=== PATIENT | female | born 1965 | race Caucasian/White ===

== ENCOUNTER 2020-03-03 15:48 | Outpatient (REF) | payer OTHER, SELFPAY ==
[2020-03-03 16:38] LABS: Hemoglobin 11.4 g/dl (12.0-16.0); Mean Corpuscular HGB Conc 31.7 g/dl (31.0-35.0); Mean Corpuscular Hemoglobin 28.3 pg (27.0-33.0); Mean Corpuscular Volume 89.3 fL (80-98); Mean Platelet Volume 8.5 fL (9.4-12.3); Platelet Count 718 X10*3/uL (160-400); Red Blood Count 4.03 X10*6/uL (4.20-5.50); Red Cell Distribution Width 12.6 % (11.0-16.0); White Blood Count 10.5 X10*3/uL (4.8-10.8)
[2020-03-03 17:07] LABS: Alanine Aminotransferase 31 U/L (0-31); Albumin Level 3.9 g/dL (3.5-5.0); Alkaline Phosphatase 95 U/L (39-117); Anion Gap 17 (12-20); Aspartate Amino Transferase 20 U/L (5-31); Bilirubin Direct 0.2 mg/dL (0.0-0.5); Bilirubin Total 0.4 mg/dL (0.0-1.0); Blood Urea Nitrogen 13 mg/dL (9-16); C Reactive Protein 11.34 mg/dL (< or = 0.50); Carbon Dioxide 28 mmol/L (22-29); Chloride 97 mmol/L (96-108); Cholesterol 180 mg/dL; Estimated Glomerular Filt Rate > 60; Glucose Random 85 mg/dL (60-115); HDL Cholesterol 36 mg/dL; LDL Cholesterol Calculated 126 mg/dl; Potassium 4.6 mmol/l (3.3-5.1); Sodium 137 mmol/L (135-145); Triglycerides 91 mg/dL
[2020-03-03 17:16] LABS: Erythrocyte Sedimentation Rate 85 MM/HR (0-20)
[2020-03-03 17:27] LABS: Thyroid Stimulating Hormone 1.84 uIU/mL (0.32-4.0)
[2020-03-04 12:22] LABS: Rheumatoid Factor < 15.0 IU/mL (<15.0)
[2020-03-04 21:36] LABS: Lyme Abs Screen <0.90 index
== END 2020-03-03 15:49 | disposition home or self-care (01) ==
LOC: HO.LAB 15:48
PROVIDERS: PCP Internal Medicine; Visit Provider Internal Medicine
DX: M19.90 Unspecified osteoarthritis, unspecified site (principal)
CPT/HCPCS: 36415; 80048; 80061; 80076; 84443; 85027; 85652; 86140; 86431; 86618

== ENCOUNTER 2020-03-23 15:54 | Outpatient (REF) | payer OTHER, SELFPAY ==
--- NOTE | 2020-03-23 16:15 | XR_ITS ---
EXAMINATION: XR CHEST CLINICAL INFORMATION: M19.90 - Unspecified osteoarthritis, unspecified site COMPARISON: Chest radiographs 04/07/2006 TECHNIQUE: 2 views of the chest were obtained. FINDINGS: There is subtle smooth pleural reaction left lateral base with blunting of the left lateral and posterior costophrenic sulci and fine subpleural linear scar versus disc atelectasis. Finding is new from remote chest 04/07/2006. Remainder of the lungs are clear. There is no lobar or segmental airspace consolidation or groundglass opacity. The heart is normal in size. The vascularity is normal. No acute bony abnormality. XR/XR chest 2V IMPRESSION: Smooth pleural reaction left lateral base with fine linear subpleural scarring versus disc atelectasis. Findings new from remote chest 2005. Remainder of lungs clear.
[2020-03-23 17:36] LABS: C Reactive Protein 4.12 mg/dL (< or = 0.50)
[2020-03-27 20:28] LABS: Vitamin D 25-OH, D2 <4 ng/mL; Vitamin D 25-OH, D3 27 ng/mL; Vitamin D 25-OH, Total 27 ng/mL (30-100)
== END 2020-03-23 15:55 | disposition home or self-care (01) ==
LOC: HO.LAB 15:54
PROVIDERS: PCP Internal Medicine; Visit Provider Internal Medicine
DX: M19.90 Unspecified osteoarthritis, unspecified site (principal)
CPT/HCPCS: 36415; 71046; 82306; 86038; 86039; 86140

== ENCOUNTER 2020-03-26 12:17 | Outpatient (REF) | payer OTHER, SELFPAY ==
--- NOTE | 2020-03-26 13:16 | XR_ITS ---
EXAMINATION: CR X-RAY HAND BILATERAL 3 VIEW CLINICAL INFORMATION: Unspecified osteoarthritis. COMPARISON: None TECHNIQUE: 3 views each of the bilateral hands were obtained. FINDINGS: There is no acute fracture or dislocation. The joint spaces are unremarkable. The carpal bones are normally aligned. The distal radius and ulna are intact. The soft tissues are unremarkable. XR/XR hand RT min 3V IMPRESSION: No acute abnormality or significant degenerative changes.
--- NOTE | 2020-03-26 13:16 | XR_ITS ---
EXAMINATION: CR X-RAY HAND BILATERAL 3 VIEW CLINICAL INFORMATION: Unspecified osteoarthritis. COMPARISON: None TECHNIQUE: 3 views each of the bilateral hands were obtained. FINDINGS: There is no acute fracture or dislocation. The joint spaces are unremarkable. The carpal bones are normally aligned. The distal radius and ulna are intact. The soft tissues are unremarkable. XR/XR hand LT min 3V IMPRESSION: No acute abnormality or significant degenerative changes.
== END 2020-03-26 12:18 | disposition home or self-care (01) ==
LOC: HO.LAB 12:17
PROVIDERS: PCP Internal Medicine; Visit Provider Student in an Organized Health Care Education/Training Program
DX: M19.042 Primary osteoarthritis, left hand (principal); M19.041 Primary osteoarthritis, right hand
CPT/HCPCS: 73130

== ENCOUNTER 2020-03-29 16:39 | Outpatient (REF) | payer OTHER, SELFPAY | END 2020-03-29 16:40 | disposition home or self-care (01) | LOC: HO.LAB 16:39 | PROVIDERS: PCP Internal Medicine; Visit Provider Student in an Organized Health Care Education/Training Program | DX: Z13.89 Encounter for screening for other disorder (principal) ==

== ENCOUNTER 2020-03-31 12:21 | Outpatient (REF) | payer OTHER, SELFPAY ==
[2020-03-31 12:58] LABS: MANUAL DIFF FLAG NO
[2020-03-31 13:02] LABS: Basophils Absolute Auto 0.1 X10*3/uL (0.0-0.2); Basophils Percent Auto 0.5 % (0-2); Eosinophils Absolute Auto 0.1 X10*3/uL (0.0-0.4); Eosinophils Percent Auto 0.8 % (0-4); Hematocrit 39.7 % (37-47); Hemoglobin 12.6 g/dl (12.0-16.0); Imm Gran Abs Auto 0.04 X10*3/uL (0.00-0.03); Imm Gran Pct Auto 0.4 % (0.0-0.4); Lymphocytes Absolute Auto 1.2 X10*3/uL (1.2-4.9); Lymphocytes Percent Auto 13.3 % (20-40); Mean Corpuscular HGB Conc 31.7 g/dl (31.0-35.0); Mean Corpuscular Hemoglobin 27.6 pg (27.0-33.0); Mean Corpuscular Volume 86.9 fL (80-98); Mean Platelet Volume 8.4 fL (9.4-12.3); Monocytes Absolute Auto 0.6 X10*3/uL (0.1-1.2); Monocytes Percent Auto 6.6 % (2-11); Neutrophils Absolute Auto 7.2 X10*3/uL (2.0-8.3); Neutrophils Percent Auto 78.4 % (45-73); Platelet Count 506 X10*3/uL (160-400); Red Blood Count 4.57 X10*6/uL (4.20-5.50); Red Cell Distribution Width 14.7 % (11.0-16.0); White Blood Count 9.1 X10*3/uL (4.8-10.8)
[2020-03-31 13:09] LABS: Glucose Urine UA NEG (NEG); Leukocyte Esterase Urine 1+ (NEG); Nitrite Urine NEG (NEG); PH 8.5 (5.0-8.0); Specific Gravity - Urine 1.015 (1.005-1.025); Urine Blood 1+ (NEG); Urine Ketones NEG (NEG); Urine Protein NEG (NEG-TRACE)
[2020-03-31 13:12] LABS: Appearance Urine HAZY; Color Urine YELLOW
[2020-03-31 13:25] LABS: Alanine Aminotransferase 7 U/L (0-31); Albumin Level 4.2 g/dL (3.5-5.0); Alkaline Phosphatase 73 U/L (39-117); Anion Gap 10 (12-20); Aspartate Amino Transferase 10 U/L (5-31); Bilirubin Total 0.7 mg/dL (0.0-1.0); Blood Urea Nitrogen 11 mg/dL (9-16); C Reactive Protein 0.69 mg/dL (< or = 0.50); Calcium 9.3 mg/dL (8.4-10.2); Carbon Dioxide 32 mmol/L (22-29); Chloride 98 mmol/L (96-108); Estimated Glomerular Filt Rate > 60; Glucose Random 92 mg/dL (60-115); Potassium 3.6 mmol/l (3.3-5.1); Sodium 136 mmol/L (135-145)
[2020-03-31 13:54] LABS: Erythrocyte Sedimentation Rate 23 MM/HR (0-20)
[2020-03-31 14:32] LABS: Bacteria Urine 1+ /LPF; Squamous Epithelial Cell Urine 2+ /LPF
[2020-04-01 12:53] LABS: Anti DNA DS Antibody 1 IU/mL; Antibody to SS-A Antigen <1.0 NEG AI (<1.0 NEG); Antibody to SS-B Antigen <1.0 NEG AI (<1.0 NEG); SM/Ribonucleoprotein Ab <1.0 NEG AI (<1.0 NEG); Smith Protein <1.0 NEG AI (<1.0 NEG)
[2020-04-01 13:17] LABS: Complement C3 127 mg/dL (83-193)
[2020-04-01 13:43] LABS: IgA 370 mg/dL (47-310); IgG 1860 mg/dL (600-1640); IgM 147 mg/dL (50-300)
[2020-04-01 14:53] LABS: Prot Elec - Alpha1 0.4 g/dL (0.2-0.3); Prot Elec - Alpha2 0.9 g/dL (0.5-0.9); Prot Elec - Beta 1 0.5 g/dL (0.4-0.6); Prot Elec - Beta 2 0.5 g/dL (0.2-0.5); Prot Elec - Gamma 1.7 g/dL (0.8-1.7); Prot Elec - Total Protein 7.8 g/dL (6.1-8.1)
[2020-04-03 14:12] LABS: TS Negative Control Passed; TS Panel A 0; TS Panel B 0; TS Positive Control Passed; TSpotTB Negative (SeeBelow)
[2020-04-05 04:04] LABS: HBS Num1 0.47 mIU/mL (0-7.99); HBc Num1 0.12 S/CO (0.00-0.79); Hepatitis B Core Antibody Nonreactive (Nonreactive); ~HepC Num1 0.16 S/CO (0.00-0.79); ~Hepatitis B Surface Antibody NONREACTIVE (Nonreactive); ~Hepatitis C Antibody Nonreactive (Nonreactive)
[2020-04-05 04:11] LABS: Hepatitis B Surface Antigen Negative (Negative)
[2020-04-05 13:33] LABS: Cyclic Citrullinated Peptide <16 UNITS
[2020-04-07 08:10] LABS: HBsAGNum1 0.21 S/CO (0.00-0.99)
[2020-04-07 09:25] LABS: Hepatitis A Antibody IgM 0.15 Index (0-0.79); ~Hepatitis A Antibody IgM Nonreactive (Nonreactive)
== END 2020-03-31 12:22 | disposition home or self-care (01) ==
LOC: HO.LAB 12:21
PROVIDERS: PCP Internal Medicine; Visit Provider Student in an Organized Health Care Education/Training Program
DX: M19.90 Unspecified osteoarthritis, unspecified site (principal); R76.8 Other specified abnormal immunological findings in serum
CPT/HCPCS: 36415; 80053; 81001; 82784; 84155; 84165; 85025; 85652; 86140; 86160; 86200; 86225; 86235; 86334; 86481; 86704; 86706; 86709; 86803; 87340

== ENCOUNTER → 2020-04-14 15:32 | Outpatient (BNVA) | payer OTHER, SELFPAY | PROVIDERS: PCP Internal Medicine; Visit Provider Student in an Organized Health Care Education/Training Program | DX: Z76.89 Persons encountering health services in other specified circumstances (principal) ==

== ENCOUNTER 2020-04-29 17:47 | Outpatient (REF) | payer OTHER, SELFPAY ==
--- NOTE | 2020-04-29 17:50 | MR_ITS ---
EXAMINATION: MR HAND WITH AND WITHOUT CONTRAST, LEFT CLINICAL INFORMATION: Unspecified osteoarthritis. COMPARISON: Radiograph dated 03/26/2020 TECHNIQUE: Multiplanar MR imaging was obtained through the left hand by a 1.5 Yaritza magnet before and after intravenous administration of 7 mL Gadavist. FINDINGS: The bone marrow signal is normal. No fracture or malalignment. The articular cartilage appears well preserved. No abnormal marrow or capsular enhancement. The joints appear well preserved without effusions, synovitis, capsular thickening, or pericapsular inflammatory changes. No periostitis. Ligaments and TFCC appear intact at the left wrist. The tendons are intact without tears or tendinosis. There is a small volume of tenosynovial fluid around the flexor digitorum tendons to the index and long fingers at the level of the carpal tunnel. There is associated tenosynovial hyperenhancement in this region, as well. A trace amount of fluid around the extensor carpi radialis brevis and longus tendons at the insertion is within normal limits. Subcutaneous soft tissues are normal in signal intensity. No suspicious nodules or abnormal enhancement. MR/MR hand LT wo/w con IMPRESSION: Mild tenosynovitis in the carpal tunnel around the index and long finger flexor tendons. Otherwise, normal MRI of the left hand without synovitis or other findings of arthritis.
== END 2020-04-29 17:48 | disposition home or self-care (01) ==
LOC: HO.MRI 17:47
PROVIDERS: Visit Provider Student in an Organized Health Care Education/Training Program
DX: M19.90 Unspecified osteoarthritis, unspecified site (principal)
CPT/HCPCS: 73220; A9585

== ENCOUNTER → 2020-05-20 16:08 | Outpatient (BNVA) | payer OTHER, SELFPAY | PROVIDERS: PCP Internal Medicine; Visit Provider Student in an Organized Health Care Education/Training Program ==

== ENCOUNTER 2020-05-29 09:56 | Outpatient (REF) | payer OTHER, SELFPAY ==
--- NOTE | ~2020-05-29 | MM_ITS ---
EXAMINATION: MM SCREENING DIGITAL BREAST TOMOSYNTHESIS, BILATERAL CLINICAL INFORMATION: Screening. Asymptomatic. Benign left breast biopsy 2016. The lifetime risk of breast cancer based on the Tyrer-Cuzick Model is 14%. COMPARISON: Mammography: 05/24/2019, 05/18/2018, 04/11/2017 TECHNIQUE: Digital breast tomosynthesis is performed in both the craniocaudal and mediolateral oblique views along with computer-aided detection (CAD). Synthesized 2D images are generated from the tomosynthesis. Additional exaggerated left CC view is provided. FINDINGS: The breasts are heterogeneously dense, which may obscure small masses (ACR BI-RADS breast composition Category c). There is inhomogeneous parenchymal pattern similar to prior studies. No developing density or interval mass or architectural abnormality or abnormal calcifications. There is biopsy clip marker overlying oval mass again seen central posterior upper outer left breast. No significant changes. MM/MM tomosynthesis screening BI IMPRESSION: No significant changes from prior exams. ASSESSMENT: BI-RADS 2: Benign RECOMMENDATION: Routine annual mammography screening. This patient's information was entered into a reminder system with a target due date for their next mammogram.
== END 2020-05-29 09:57 | disposition home or self-care (01) ==
LOC: HO.MAMMO 09:56
PROVIDERS: PCP Internal Medicine; Visit Provider Internal Medicine
DX: Z12.31 Encounter for screening mammogram for malignant neoplasm of breast (principal)
CPT/HCPCS: 77063; 77067

== ENCOUNTER → 2020-08-18 15:36 | Outpatient (BNVA) | payer OTHER, SELFPAY | PROVIDERS: Visit Provider Student in an Organized Health Care Education/Training Program ==

== ENCOUNTER 2020-09-13 13:15 | Outpatient (REF) | payer OTHER, SELFPAY ==
[2020-09-13 13:46] LABS: MANUAL DIFF FLAG NO
[2020-09-13 14:00] LABS: Basophils Percent Auto 0.3 % (0-2); Eosinophils Percent Auto 0.3 % (0-4); Hematocrit 35.9 % (37-47); Hemoglobin 12.2 g/dl (12.0-16.0); Imm Gran Abs Auto 0.04 X10*3/uL (0.00-0.03); Imm Gran Pct Auto 0.4 % (0.0-0.4); Lymphocytes Absolute Auto 1.9 X10*3/uL (1.2-4.9); Mean Corpuscular Hemoglobin 30.9 pg (27.0-33.0); Mean Corpuscular Volume 90.9 fL (80-98); Mean Platelet Volume 9.1 fL (9.4-12.3); Monocytes Absolute Auto 0.7 X10*3/uL (0.1-1.2); Monocytes Percent Auto 7.4 % (2-11); Neutrophils Absolute Auto 7.1 X10*3/uL (2.0-8.3); Neutrophils Percent Auto 72.6 % (45-73); Platelet Count 333 X10*3/uL (160-400); Red Blood Count 3.95 X10*6/uL (4.20-5.50); Red Cell Distribution Width 13.2 % (11.0-16.0); White Blood Count 9.7 X10*3/uL (4.8-10.8)
[2020-09-13 14:41] LABS: Erythrocyte Sedimentation Rate 10 MM/HR (0-20)
[2020-09-13 15:00] LABS: Alanine Aminotransferase < 6 U/L (0-31); Albumin Level 3.9 g/dL (3.5-5.0); Alkaline Phosphatase 57 U/L (39-117); Anion Gap 12 (12-20); Aspartate Amino Transferase 12 U/L (5-31); Bilirubin Total 0.9 mg/dL (0.0-1.0); Blood Urea Nitrogen 8 mg/dL (9-16); C Reactive Protein 0.78 mg/dL (< or = 0.50); Carbon Dioxide 26 mmol/L (22-29); Chloride 102 mmol/L (96-108); Estimated Glomerular Filt Rate > 60; Glucose Random 79 mg/dL (60-115); Potassium 3.7 mmol/L (3.3-5.1); Sodium 136 mmol/L (135-145); Total Protein 6.5 g/dL (6.5-8.0)
== END 2020-09-13 13:16 | disposition home or self-care (01) ==
LOC: HO.LAB 13:15
PROVIDERS: PCP Internal Medicine; Visit Provider Student in an Organized Health Care Education/Training Program
DX: M19.90 Unspecified osteoarthritis, unspecified site (principal)
CPT/HCPCS: 36415; 80053; 85025; 85652; 86140

== ENCOUNTER → 2020-10-13 09:36 | Outpatient (BNVA) | payer OTHER, SELFPAY | PROVIDERS: Visit Provider Student in an Organized Health Care Education/Training Program ==

== ENCOUNTER 2020-12-14 16:13 | Outpatient (REF) | payer OTHER, SELFPAY ==
[2020-12-14 16:51] LABS: MANUAL DIFF FLAG NO
[2020-12-14 16:55] LABS: Basophils Percent Auto 0.4 % (0-2); Eosinophils Absolute Auto 0.1 X10*3/uL (0.0-0.4); Eosinophils Percent Auto 0.7 % (0-4); Hematocrit 39.9 % (37-47); Hemoglobin 13.8 g/dl (12.0-16.0); Imm Gran Abs Auto 0.03 X10*3/uL (0.00-0.03); Imm Gran Pct Auto 0.4 % (0.0-0.4); Lymphocytes Absolute Auto 1.6 X10*3/uL (1.2-4.9); Lymphocytes Percent Auto 19.4 % (20-40); Mean Corpuscular HGB Conc 34.6 g/dl (31.0-35.0); Mean Corpuscular Hemoglobin 32.4 pg (27.0-33.0); Mean Corpuscular Volume 93.7 fL (80-98); Mean Platelet Volume 9.1 fL (9.4-12.3); Monocytes Absolute Auto 0.8 X10*3/uL (0.1-1.2); Monocytes Percent Auto 9.2 % (2-11); Neutrophils Absolute Auto 5.8 X10*3/uL (2.0-8.3); Neutrophils Percent Auto 69.9 % (45-73); Platelet Count 400 X10*3/uL (160-400); Red Blood Count 4.26 X10*6/uL (4.20-5.50); Red Cell Distribution Width 12.8 % (11.0-16.0); White Blood Count 8.2 X10*3/uL (4.8-10.8)
[2020-12-14 17:21] LABS: Alanine Aminotransferase 8 U/L (0-31); Albumin Level 4.3 g/dL (3.5-5.0); Alkaline Phosphatase 58 U/L (39-117); Anion Gap 10 (12-20); Aspartate Amino Transferase 11 U/L (5-31); Bilirubin Total 0.9 mg/dL (0.0-1.0); Blood Urea Nitrogen 8 mg/dL (9-16); C Reactive Protein 0.23 mg/dL (< or = 0.50); Calcium 9.3 mg/dL (8.4-10.2); Carbon Dioxide 29 mmol/L (22-29); Chloride 101 mmol/L (96-108); Estimated Glomerular Filt Rate > 60; Glucose Random 83 mg/dL (60-115); Potassium 3.8 mmol/L (3.3-5.1); Sodium 136 mmol/L (135-145); Total Protein 7.1 g/dL (6.5-8.0)
[2020-12-14 17:54] LABS: Erythrocyte Sedimentation Rate 6 MM/HR (0-20)
== END 2020-12-14 16:14 | disposition home or self-care (01) ==
LOC: HO.LAB 16:13
PROVIDERS: PCP Internal Medicine; Visit Provider Student in an Organized Health Care Education/Training Program
DX: L40.50 Arthropathic psoriasis, unspecified (principal)
CPT/HCPCS: 36415; 80053; 85025; 85652; 86140

== ENCOUNTER 2021-06-02 10:32 | Outpatient (REF) | payer OTHER, SELFPAY ==
[2021-06-02 11:07] LABS: Hematocrit 40.1 % (37.0-47.0); Hemoglobin 13.5 g/dl (12.0-16.0); Mean Corpuscular HGB Conc 33.7 g/dl (31.0-35.0); Mean Corpuscular Hemoglobin 31.4 pg (27.0-33.0); Mean Corpuscular Volume 93.3 fL (80.0-98.0); Mean Platelet Volume 8.7 fL (9.4-12.3); Platelet Count 537 X10*3/uL (160-400); Red Cell Distribution Width 12.2 % (11.0-16.0); White Blood Count 5.3 X10*3/uL (4.8-10.8)
[2021-06-02 11:39] LABS: Alanine Aminotransferase 6 U/L (0-31); Alkaline Phosphatase 71 U/L (39-117); Anion Gap 12 (12-20); Aspartate Amino Transferase 12 U/L (5-31); Bilirubin Direct 0.2 mg/dL (0.0-0.5); Bilirubin Total 0.6 mg/dL (0.0-1.0); Blood Urea Nitrogen 12 mg/dL (9-16); C Reactive Protein 1.58 mg/dL (< or = 0.50); Calcium 9.2 mg/dL (8.4-10.2); Carbon Dioxide 28 mmol/L (22-29); Chloride 97 mmol/L (96-108); Cholesterol 160 mg/dL; Estimated Glomerular Filt Rate > 60; Glucose Random 79 mg/dL (60-115); HDL Cholesterol 44 mg/dL; LDL Cholesterol Calculated 102 mg/dl; Potassium 4.3 mmol/L (3.3-5.1); Sodium 133 mmol/L (135-145); Total Protein 7.2 g/dL (6.5-8.0); Triglycerides 70 mg/dL
[2021-06-02 11:48] LABS: Thyroid Stimulating Hormone 1.64 uIU/mL (0.32-4.0)
[2021-06-02 12:25] LABS: Vitamin B12 303 pg/mL (200-900)
[2021-06-06 13:37] LABS: Vitamin D 25-OH, D2 <4 ng/mL; Vitamin D 25-OH, D3 21 ng/mL; Vitamin D 25-OH, Total 21 ng/mL (30-100)
== END 2021-06-02 10:33 | disposition home or self-care (01) ==
LOC: HO.10HDL 10:32
PROVIDERS: Visit Provider Internal Medicine
DX: L40.50 Arthropathic psoriasis, unspecified (principal)
CPT/HCPCS: 36415; 80048; 80061; 80076; 82306; 82550; 82607; 82746; 84443; 85027; 86140

== ENCOUNTER 2021-06-08 15:53 | Outpatient (REF) | payer OTHER, SELFPAY ==
--- NOTE | ~2021-06-08 | MM_ITS ---
EXAMINATION: MM SCREENING DIGITAL BREAST TOMOSYNTHESIS, BILATERAL CLINICAL INFORMATION: Screening. Asymptomatic. The lifetime risk of breast cancer based on the Tyrer-Cuzick Model is 9%. COMPARISON: Mammography: 05/29/2020, 05/24/2019, 01/15/2019, 04/11/2017 TECHNIQUE: Digital breast tomosynthesis is performed in both the craniocaudal and mediolateral oblique views along with computer-aided detection (CAD). Synthesized 2D images are generated from the tomosynthesis. FINDINGS: The breasts are heterogeneously dense, which may obscure small masses (ACR BI-RADS breast composition Category c). Parenchymal pattern is similar to prior studies. There is no developing density or interval mass or architectural abnormality. Left breast again has biopsy clip marker overlying a stable mass upper outer quadrant. There are no abnormal calcifications. The axilla and skin contours are unremarkable. No significant changes. MM/MM tomosynthesis screening BI IMPRESSION: No mammographic evidence of malignancy. ASSESSMENT: BI-RADS 2: Benign RECOMMENDATION: Routine annual mammography screening. This patient's information was entered into a reminder system with a target due date for their next mammogram.
== END 2021-06-08 15:54 | disposition home or self-care (01) ==
LOC: HO.MAMMO 15:53
PROVIDERS: PCP Internal Medicine; Visit Provider Internal Medicine
DX: Z12.31 Encounter for screening mammogram for malignant neoplasm of breast (principal)
CPT/HCPCS: 77063; 77067

== ENCOUNTER → 2021-08-09 07:52 | Outpatient (BNVA) | payer OTHER, SELFPAY | PROVIDERS: PCP Internal Medicine; Visit Provider Internal Medicine Rheumatology | DX: Z13.89 Encounter for screening for other disorder (principal) ==

== ENCOUNTER 2021-08-10 16:02 | Outpatient (REF) | payer OTHER, SELFPAY ==
--- NOTE | ~2021-08-10 | XR_ITS ---
EXAMINATION: XR HIP, RIGHT CLINICAL INFORMATION: Arthropathic psoriasis. COMPARISON: None TECHNIQUE: Two views of the right hip. FINDINGS: There is no evidence of acute fracture or dislocation of the right hip. There is some narrowing with sclerosis involving the superior joint space. There appears to be a subchondral cyst formation about the femoral head without femoral head collapse with some mild articular irregularity. Marginal spurring is present. Right sacroiliac joint appears unremarkable. IUD seen in place. XR/XR hip RT min 2V IMPRESSION: No acute fracture or dislocation of the right hip. Degenerative changes of the right hip as described. Diminished density about the femoral head likely represents subchondral cyst, however, possibility of early avascular necrosis not excluded. No evidence of femoral head collapse or crescent-shaped region of diminished density.
[2021-08-10 16:12] LABS: MANUAL DIFF FLAG NO
[2021-08-10 16:50] LABS: Basophils Percent Auto 0.5 % (0-2); Eosinophils Absolute Auto 0.1 X10*3/uL (0.0-0.4); Eosinophils Percent Auto 1.1 % (0-4); Hematocrit 39.4 % (37.0-47.0); Hemoglobin 13.4 g/dl (12.0-16.0); Imm Gran Abs Auto 0.02 X10*3/uL (0.00-0.03); Imm Gran Pct Auto 0.3 % (0.0-0.4); Lymphocytes Absolute Auto 1.9 X10*3/uL (1.2-4.9); Lymphocytes Percent Auto 25.7 % (20-40); Monocytes Absolute Auto 0.8 X10*3/uL (0.1-1.2); Neutrophils Absolute Auto 4.7 x10*3/uL (2.0-8.3); Neutrophils Percent Auto 62.4 % (45-73); Platelet Count 383 X10*3/uL (160-400); Red Blood Count 4.19 X10*6/uL (4.20-5.50); Red Cell Distribution Width 13.4 % (11.0-16.0); White Blood Count 7.5 X10*3/uL (4.8-10.8)
[2021-08-10 17:23] LABS: Erythrocyte Sedimentation Rate 7 MM/HR (0-20)
[2021-08-10 17:25] LABS: Alanine Aminotransferase 7 U/L (0-31); Aspartate Amino Transferase 11 U/L (5-31); C Reactive Protein 0.33 mg/dL (< or = 0.50); Estimated Glomerular Filt Rate > 60
== END 2021-08-10 16:03 | disposition home or self-care (01) ==
LOC: HO.LAB 16:02
PROVIDERS: PCP Internal Medicine; Visit Provider Internal Medicine Rheumatology
DX: L40.50 Arthropathic psoriasis, unspecified (principal); Z79.899 Other long term (current) drug therapy
CPT/HCPCS: 36415; 73502; 82565; 84450; 84460; 85025; 85652; 86140

== ENCOUNTER 2021-10-13 10:27 | Outpatient (REF) | payer OTHER, SELFPAY ==
[2021-10-13 10:56] LABS: MANUAL DIFF FLAG NO
[2021-10-13 11:26] LABS: Basophils Percent Auto 0.6 % (0-2); Eosinophils Absolute Auto 0.1 X10*3/uL (0.0-0.4); Hematocrit 40.7 % (37.0-47.0); Imm Gran Abs Auto 0.02 X10*3/uL (0.00-0.03); Imm Gran Pct Auto 0.3 % (0.0-0.4); Lymphocytes Absolute Auto 1.7 X10*3/uL (1.2-4.9); Lymphocytes Percent Auto 23.9 % (20-40); Mean Corpuscular HGB Conc 34.4 g/dl (31.0-35.0); Mean Corpuscular Hemoglobin 32.5 pg (27.0-33.0); Mean Corpuscular Volume 94.4 fL (80.0-98.0); Mean Platelet Volume 9.2 fL (9.4-12.3); Monocytes Absolute Auto 0.6 X10*3/uL (0.1-1.2); Monocytes Percent Auto 8.4 % (2-11); Neutrophils Absolute Auto 4.7 x10*3/uL (2.0-8.3); Neutrophils Percent Auto 65.8 % (45-73); Platelet Count 328 X10*3/uL (160-400); Red Blood Count 4.31 X10*6/uL (4.20-5.50); Red Cell Distribution Width 12.6 % (11.0-16.0); White Blood Count 7.2 X10*3/uL (4.8-10.8)
[2021-10-13 12:18] LABS: Alanine Aminotransferase 7 U/L (0-31); Aspartate Amino Transferase 11 U/L (5-31); C Reactive Protein 0.34 mg/dL (< or = 0.50); Estimated Glomerular Filt Rate > 60
[2021-10-13 12:28] LABS: Erythrocyte Sedimentation Rate 7 MM/HR (0-20)
[2021-10-18 13:20] LABS: Vitamin D 25-OH, D2 <4 ng/mL; Vitamin D 25-OH, D3 53 ng/mL; Vitamin D 25-OH, Total 53 ng/mL (30-100)
== END 2021-10-13 10:28 | disposition home or self-care (01) ==
LOC: HO.LAB 10:27
PROVIDERS: PCP Internal Medicine; Visit Provider Internal Medicine Rheumatology
DX: L40.50 Arthropathic psoriasis, unspecified (principal); E55.9 Vitamin D deficiency, unspecified; Z79.899 Other long term (current) drug therapy
CPT/HCPCS: 36415; 82306; 82565; 84450; 84460; 85025; 85652; 86140

== ENCOUNTER 2021-12-29 16:02 | Outpatient (REF) | payer OTHER, SELFPAY ==
[2021-12-29 16:17] LABS: MANUAL DIFF FLAG NO
[2021-12-29 16:28] LABS: Basophils Percent Auto 0.5 % (0-2); Eosinophils Absolute Auto 0.1 X10*3/uL (0.0-0.4); Eosinophils Percent Auto 0.9 % (0-4); Imm Gran Abs Auto 0.02 X10*3/uL (0.00-0.03); Imm Gran Pct Auto 0.3 % (0.0-0.4); Lymphocytes Percent Auto 25.9 % (20-40); Mean Corpuscular Hemoglobin 32.9 pg (27.0-33.0); Mean Corpuscular Volume 93.9 fL (80.0-98.0); Mean Platelet Volume 8.8 fL (9.4-12.3); Monocytes Absolute Auto 0.7 X10*3/uL (0.1-1.2); Monocytes Percent Auto 8.7 % (2-11); Neutrophils Absolute Auto 4.9 x10*3/uL (2.0-8.3); Neutrophils Percent Auto 63.7 % (45-73); Platelet Count 386 X10*3/uL (160-400); Red Blood Count 4.26 X10*6/uL (4.20-5.50); Red Cell Distribution Width 12.5 % (11.0-16.0); White Blood Count 7.7 X10*3/uL (4.8-10.8)
[2021-12-29 16:46] LABS: Alanine Aminotransferase 12 U/L (0-31); Aspartate Amino Transferase 15 U/L (5-31); C Reactive Protein 0.16 mg/dL (< or = 0.50); Estimated Glomerular Filt Rate > 60
[2021-12-29 17:22] LABS: Erythrocyte Sedimentation Rate 5 MM/HR (0-20)
== END 2021-12-29 16:03 | disposition home or self-care (01) ==
LOC: HO.LAB 16:02
PROVIDERS: PCP Internal Medicine; Visit Provider Internal Medicine Rheumatology
DX: L40.50 Arthropathic psoriasis, unspecified (principal); Z79.899 Other long term (current) drug therapy
CPT/HCPCS: 36415; 82565; 84450; 84460; 85025; 85652; 86140

== ENCOUNTER 2022-03-06 15:59 | Outpatient (REF) | payer OTHER, SELFPAY ==
[2022-03-06 16:11] LABS: MANUAL DIFF FLAG NO
[2022-03-06 16:33] LABS: Basophils Percent Auto 0.4 % (0-2); Eosinophils Absolute Auto 0.1 X10*3/uL (0.0-0.4); Eosinophils Percent Auto 0.8 % (0-4); Hematocrit 42.7 % (37.0-47.0); Hemoglobin 14.8 g/dl (12.0-16.0); Imm Gran Abs Auto 0.01 X10*3/uL (0.00-0.03); Imm Gran Pct Auto 0.1 % (0.0-0.4); Lymphocytes Absolute Auto 1.8 X10*3/uL (1.2-4.9); Lymphocytes Percent Auto 25.1 % (20-40); Mean Corpuscular HGB Conc 34.7 g/dl (31.0-35.0); Mean Corpuscular Hemoglobin 32.7 pg (27.0-33.0); Mean Corpuscular Volume 94.3 fL (80.0-98.0); Monocytes Absolute Auto 0.5 X10*3/uL (0.1-1.2); Monocytes Percent Auto 7.3 % (2-11); Neutrophils Absolute Auto 4.8 x10*3/uL (2.0-8.3); Neutrophils Percent Auto 66.3 % (45-73); Platelet Count 390 X10*3/uL (160-400); Red Blood Count 4.53 X10*6/uL (4.20-5.50); Red Cell Distribution Width 12.5 % (11.0-16.0); White Blood Count 7.3 X10*3/uL (4.8-10.8)
[2022-03-06 17:03] LABS: Alanine Aminotransferase < 6 U/L (0-31); Aspartate Amino Transferase 12 U/L (5-31); C Reactive Protein 0.31 mg/dL (< or = 0.50); Estimated Glomerular Filt Rate > 60
[2022-03-06 17:29] LABS: Erythrocyte Sedimentation Rate 11 MM/HR (0-20)
== END 2022-03-06 16:00 | disposition home or self-care (01) ==
LOC: HO.LAB 15:59
PROVIDERS: PCP Internal Medicine; Visit Provider Internal Medicine Rheumatology
DX: L40.50 Arthropathic psoriasis, unspecified (principal); Z79.899 Other long term (current) drug therapy
CPT/HCPCS: 36415; 82565; 84450; 84460; 85025; 85652; 86140

== ENCOUNTER 2022-05-02 15:58 | Outpatient (REF) | payer OTHER, SELFPAY ==
[2022-05-02 16:19] LABS: MANUAL DIFF FLAG NO
[2022-05-02 17:02] LABS: Basophils Percent Auto 0.5 % (0-2); Eosinophils Absolute Auto 0.1 X10*3/uL (0.0-0.4); Eosinophils Percent Auto 1.3 % (0-4); Hematocrit 40.1 % (37.0-47.0); Imm Gran Abs Auto 0.02 X10*3/uL (0.00-0.03); Imm Gran Pct Auto 0.3 % (0.0-0.4); Lymphocytes Absolute Auto 1.9 X10*3/uL (1.2-4.9); Lymphocytes Percent Auto 24.1 % (20-40); Mean Corpuscular HGB Conc 34.9 g/dl (31.0-35.0); Mean Corpuscular Hemoglobin 32.4 pg (27.0-33.0); Mean Corpuscular Volume 92.8 fL (80.0-98.0); Mean Platelet Volume 10.1 fL (9.4-12.3); Monocytes Absolute Auto 0.7 X10*3/uL (0.1-1.2); Monocytes Percent Auto 8.8 % (2-11); Neutrophils Absolute Auto 5.1 x10*3/uL (2.0-8.3); Platelet Count 327 X10*3/uL (160-400); Red Blood Count 4.32 X10*6/uL (4.20-5.50); White Blood Count 7.8 X10*3/uL (4.8-10.8)
[2022-05-02 17:23] LABS: Alanine Aminotransferase 6 U/L (0-31); Aspartate Amino Transferase 13 U/L (5-31); C Reactive Protein 0.42 mg/dL (< or = 0.50); Estimated Glomerular Filt Rate > 60
[2022-05-02 17:47] LABS: Erythrocyte Sedimentation Rate 9 MM/HR (0-20)
== END 2022-05-02 15:59 | disposition home or self-care (01) ==
LOC: HO.LAB 15:58
PROVIDERS: PCP Internal Medicine; Visit Provider Internal Medicine Rheumatology
DX: L40.50 Arthropathic psoriasis, unspecified (principal); Z79.899 Other long term (current) drug therapy
CPT/HCPCS: 36415; 82565; 84450; 84460; 85025; 85652; 86140

== ENCOUNTER 2022-06-14 15:48 | Outpatient (REF) | payer OTHER, SELFPAY ==
--- NOTE | ~2022-06-14 | MM_ITS ---
EXAMINATION: MM SCREENING DIGITAL BREAST TOMOSYNTHESIS, BILATERAL CLINICAL INFORMATION: Screening. Asymptomatic. The lifetime risk of breast cancer based on the Tyrer-Cuzick Model is 9.6%. COMPARISON: Mammography: June 08, 2021 and studies dating back to March 15, 2016 TECHNIQUE: Digital breast tomosynthesis is performed in both the craniocaudal and mediolateral oblique views along with computer-aided detection (CAD). Synthesized 2D images are generated from the tomosynthesis. FINDINGS: The breasts are heterogeneously dense, which may obscure small masses (ACR BI-RADS breast composition Category c). There are no new significant masses, abnormal calcifications, or other abnormalities. Stable piercing biopsied left breast lesion again seen. MM/MM tomosynthesis screening BI IMPRESSION: No significant changes from prior exam. ASSESSMENT: BI-RADS 2: Benign RECOMMENDATION: Routine annual mammography screening. This patient's information was entered into a reminder system with a target due date for their next mammogram.
== END 2022-06-14 15:49 | disposition home or self-care (01) ==
LOC: HO.MAMMO 15:48
PROVIDERS: PCP Internal Medicine; Visit Provider Internal Medicine
DX: Z12.31 Encounter for screening mammogram for malignant neoplasm of breast (principal)
CPT/HCPCS: 77063; 77067

== ENCOUNTER 2022-06-22 07:25 | Outpatient (REF) | payer OTHER, SELFPAY ==
[2022-06-22 07:40] LABS: MANUAL DIFF FLAG NO
[2022-06-22 08:08] LABS: Basophils Percent Auto 0.5 % (0-2); Eosinophils Absolute Auto 0.1 X10*3/uL (0.0-0.4); Eosinophils Percent Auto 1.4 % (0-4); Hematocrit 41.6 % (37.0-47.0); Hemoglobin 14.1 g/dl (12.0-16.0); Imm Gran Abs Auto 0.02 X10*3/uL (0.00-0.03); Imm Gran Pct Auto 0.3 % (0.0-0.4); Lymphocytes Absolute Auto 1.4 X10*3/uL (1.2-4.9); Lymphocytes Percent Auto 20.5 % (20-40); Mean Corpuscular HGB Conc 33.9 g/dl (31.0-35.0); Mean Corpuscular Hemoglobin 31.5 pg (27.0-33.0); Mean Corpuscular Volume 92.9 fL (80.0-98.0); Mean Platelet Volume 8.7 fL (9.4-12.3); Monocytes Absolute Auto 0.7 X10*3/uL (0.1-1.2); Monocytes Percent Auto 10.2 % (2-11); Neutrophils Absolute Auto 4.5 x10*3/uL (2.0-8.3); Neutrophils Percent Auto 67.1 % (45-73); Platelet Count 419 X10*3/uL (160-400); Red Blood Count 4.48 X10*6/uL (4.20-5.50); Red Cell Distribution Width 13.1 % (11.0-16.0); White Blood Count 6.7 X10*3/uL (4.8-10.8)
[2022-06-22 08:35] LABS: Alanine Aminotransferase 12 U/L (0-31); Aspartate Amino Transferase 12 U/L (5-31); C Reactive Protein 0.35 mg/dL (< or = 0.50); Estimated Glomerular Filt Rate > 60
[2022-06-22 09:05] LABS: Erythrocyte Sedimentation Rate 8 MM/HR (0-20)
== END 2022-06-22 07:26 | disposition home or self-care (01) ==
LOC: HO.LAB 07:25
PROVIDERS: PCP Internal Medicine; Visit Provider Internal Medicine Rheumatology
DX: L40.50 Arthropathic psoriasis, unspecified (principal); Z79.899 Other long term (current) drug therapy
CPT/HCPCS: 36415; 82565; 84450; 84460; 85025; 85652; 86140

== ENCOUNTER → 2022-06-26 13:43 | Outpatient (BNVA) | payer OTHER, SELFPAY | PROVIDERS: PCP Internal Medicine; Visit Provider Internal Medicine Rheumatology | DX: Z13.89 Encounter for screening for other disorder (principal) ==

== ENCOUNTER 2022-09-11 15:40 | Outpatient (REF) | payer OTHER, SELFPAY ==
[2022-09-11 17:22] LABS: Erythrocyte Sedimentation Rate 12 MM/HR (0-20)
[2022-09-11 17:38] LABS: Alanine Aminotransferase 9 U/L (0-31); Aspartate Amino Transferase 12 U/L (5-31); C Reactive Protein 0.35 mg/dL (< or = 0.50); Estimated Glomerular Filt Rate > 60
== END 2022-09-11 15:41 | disposition home or self-care (01) ==
LOC: HO.LAB 15:40
PROVIDERS: Visit Provider Internal Medicine Rheumatology
DX: L40.50 Arthropathic psoriasis, unspecified (principal); Z79.899 Other long term (current) drug therapy
CPT/HCPCS: 36415; 82565; 84450; 84460; 85652; 86140

== ENCOUNTER → 2022-10-09 08:04 | Outpatient (BNVA) | payer OTHER, SELFPAY | PROVIDERS: PCP Internal Medicine; Visit Provider Internal Medicine Rheumatology ==

== ENCOUNTER 2022-11-14 13:11 | Outpatient (REF) | payer OTHER, SELFPAY ==
[2022-11-14 13:22] LABS: MANUAL DIFF FLAG NO
[2022-11-14 14:10] LABS: Basophils Percent Auto 0.1 % (0-2); Eosinophils Absolute Auto 0.1 X10*3/uL (0.0-0.4); Eosinophils Percent Auto 1.6 % (0-4); Hematocrit 41.1 % (37.0-47.0); Hemoglobin 14.1 g/dl (12.0-16.0); Imm Gran Abs Auto 0.03 X10*3/uL (0.00-0.03); Imm Gran Pct Auto 0.4 % (0.0-0.4); Lymphocytes Absolute Auto 1.7 X10*3/uL (1.2-4.9); Lymphocytes Percent Auto 22.3 % (20-40); Mean Corpuscular HGB Conc 34.3 g/dl (31.0-35.0); Mean Corpuscular Volume 90.3 fL (80.0-98.0); Mean Platelet Volume 8.7 fL (9.4-12.3); Monocytes Absolute Auto 0.6 X10*3/uL (0.1-1.2); Monocytes Percent Auto 7.7 % (2-11); Neutrophils Absolute Auto 5.1 x10*3/uL (2.0-8.3); Neutrophils Percent Auto 67.9 % (45-73); Platelet Count 389 X10*3/uL (160-400); Red Blood Count 4.55 X10*6/uL (4.20-5.50); Red Cell Distribution Width 12.8 % (11.0-16.0); White Blood Count 7.5 X10*3/uL (4.8-10.8)
[2022-11-14 14:48] LABS: Erythrocyte Sedimentation Rate 12 MM/HR (0-20)
[2022-11-14 14:57] LABS: Alanine Aminotransferase 11 U/L (0-31); Aspartate Amino Transferase 13 U/L (5-31); Estimated Glomerular Filt Rate > 60
== END 2022-11-14 13:12 | disposition home or self-care (01) ==
LOC: HO.LAB 13:11
PROVIDERS: PCP Internal Medicine; Visit Provider Internal Medicine Rheumatology
DX: L40.50 Arthropathic psoriasis, unspecified (principal); Z79.899 Other long term (current) drug therapy
CPT/HCPCS: 36415; 82565; 84450; 84460; 85025; 85652; 86140

== ENCOUNTER 2022-12-28 07:56 | Outpatient (AMB) | payer OTHER, SELFPAY ==
--- NOTE | 2022-12-28 07:58 | MHC.PC.OV ---
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 Accompanied by: Self / Same As Patient Allergies No Known Allergies Allergy (Verified 12/28/22 08:17) Medication List - Last Reconciled 12/28/22 by Freddy Dinh MD alprazolam 0.5 mg PO BEDTIME PRN fluorouracil 5% appl topical BID PRN folic acid 1 mg PO DAILY ibuprofen 600 mg PO Q8H PRN methotrexate sodium 15 mg (6 x 2.5 mg) PO QWEEK triamterene-hydrochlorothiazid 37.5-25 mg 1 tab PO QAM Tobacco use date assessed: 06/22/22 Dental Screening Dental Screen Date: 12/28/22 Did you have a dental visit in the last 12 months?: Yes Did you have a dental problem in the last 6 months where you did not have access to dental care?: No Was dental information given to patient?: Patient has dentist HPI 6mth f/u HPI Details 57-year-old female presents to the office to discuss her chronic medical conditions. Since last office visit patient had a right hip replacement in July. She underwent the procedure successfully and has recovered completely. Continues to have breakthrough pain due to her psoriatic arthritis. The methotrexate dosage has been increased to 2.5 mg 6 times a day. Also the 5 FU cream has been restarted. Able to function and do all activities of daily living. Compliant with medications and reporting no side effects. [facility] Medical History Psoriasis Vitamin D deficiency Long-term use of immunosuppressant medication History of squamous cell carcinoma of skin Vitamin deficiency FUNMI positive Essential (primary) hypertension Anxiety disorder, unspecified Surgical History History of total right hip replacement Family History Son No problems noted. Son No problems noted. Father Substance use disorder Social History Housing: House Alcohol intake: current Alcohol intake frequency: a few times a week Patient Tobacco Use Status: Never used Tobacco e-Cigarette/Vaping Use: Never Used Second Hand Smoke Exposure: No service: No Current occupational status: employed Current occupational exposures/hazards: No Cognitive needs: No Hearing needs: No Vision needs: Yes (contact/Reading glasses) Questionnaire Thrive Questionnaire Date Thrive assessed: 06/22/22 CHIP-7 AMB Questionnaire CHIP-7 Date CHIP - 7 assessed: 06/22/22 Source: Developed by Drs. Osmany Sung, Carie Araiza, Kan Quijano and colleagues, with an educational jessica from [employer]. Physical exam (Primary Care) Tobacco/Smoking Status: Tobacco use Status Tobacco use date assessed 06/22/22 12/28/22 07:58 Patient Tobacco Use Status Never used Tobacco 12/28/22 07:58 e-Cigarette/Vaping Use Never Used 12/28/22 07:58 Thrive Assessment: Date of Thrive Assessment Date Thrive assessed 06/22/22 12/28/22 07:58 Const General: cooperative and healthy appearing Nutritional Appearance: well nourished Orientation/consciousness: patient oriented x3 Limitations: no limitations HENMT Head: Yes normal to inspection Eyes General: appearance normal, both eyes and all related structures Neck Neck: Yes normal visual inspection Chest Chest palpation & inspection: normal palpation of entire chest wall Resp Effort & Inspection: normal respiratory effort Neuro General: patient oriented x3 Assessment and Plan Assessment & Plan (1) Essential (primary) hypertension: Code(s): I10 - Essential (primary) hypertension Plan: Blood pressure is in range. Continue current medications. (2) Psoriatic arthritis: Comment: Onset 2019. methotrexate started 06/2020 Code(s): L40.50 - Arthropathic psoriasis, unspecified Plan: Continue medications at same dosage. Patient has an upcoming Rheumatology appointment. (3) Anxiety disorder, unspecified: Code(s): F41.9 - Anxiety disorder, unspecified Qualifiers: Anxiety disorder type: generalized anxiety disorder Qualified Code(s): F41.1 - Generalized anxiety disorder Plan: Continue current medications Coding Level of Care Code Est Pt Level 4 (50872) Diagnoses Essential (primary) hypertension I10 Psoriatic arthritis L40.50 Generalized anxiety disorder F41.1 Anxiety disorder type: generalized anxiety disorder
[2022-12-28 08:03] VITALS: BP 132/90; PULSE 77; O2SAT 99; BMI 27.8
== END 2022-12-28 08:19 | disposition home or self-care (01) ==
PROVIDERS: Visit Provider Internal Medicine
DX: I10 Essential (primary) hypertension (principal); L40.50 Arthropathic psoriasis, unspecified; F41.1 Generalized anxiety disorder
CPT/HCPCS: 99214

== ENCOUNTER 2023-01-19 07:51 | Outpatient (REF) | payer OTHER, SELFPAY ==
[2023-01-19 11:45] LABS: MANUAL DIFF FLAG NO
[2023-01-19 11:56] LABS: Basophils Percent Auto 0.5 % (0-2); Eosinophils Absolute Auto 0.1 X10*3/uL (0.0-0.4); Eosinophils Percent Auto 2.2 % (0-4); Hematocrit 41.3 % (37.0-47.0); Hemoglobin 13.8 g/dl (12.0-16.0); Imm Gran Abs Auto 0.02 X10*3/uL (0.00-0.03); Imm Gran Pct Auto 0.3 % (0.0-0.4); Lymphocytes Absolute Auto 1.6 X10*3/uL (1.2-4.9); Lymphocytes Percent Auto 25.1 % (20-40); Mean Corpuscular HGB Conc 33.4 g/dl (31.0-35.0); Mean Corpuscular Hemoglobin 31.6 pg (27.0-33.0); Mean Corpuscular Volume 94.5 fL (80.0-98.0); Mean Platelet Volume 9.2 fL (9.4-12.3); Monocytes Absolute Auto 0.7 X10*3/uL (0.1-1.2); Neutrophils Absolute Auto 3.8 x10*3/uL (2.0-8.3); Neutrophils Percent Auto 60.9 % (45-73); Platelet Count 439 X10*3/uL (160-400); Red Blood Count 4.37 X10*6/uL (4.20-5.50); Red Cell Distribution Width 13.2 % (11.0-16.0); White Blood Count 6.3 X10*3/uL (4.8-10.8)
[2023-01-19 12:17] LABS: Alanine Aminotransferase 10 U/L (0-31); Aspartate Amino Transferase 14 U/L (5-31); C Reactive Protein 0.47 mg/dL (< or = 0.50); Estimated Glomerular Filt Rate > 60
[2023-01-19 12:42] LABS: Erythrocyte Sedimentation Rate 10 MM/HR (0-20)
== END 2023-01-19 07:52 | disposition home or self-care (01) ==
LOC: HO.10HDL 07:51
PROVIDERS: PCP Internal Medicine; Visit Provider Internal Medicine Rheumatology
DX: L40.50 Arthropathic psoriasis, unspecified (principal); Z79.899 Other long term (current) drug therapy
CPT/HCPCS: 36415; 82565; 84450; 84460; 85025; 85652; 86140

== ENCOUNTER 2023-01-24 07:55 | Outpatient (AMB) | payer OTHER, SELFPAY ==
--- NOTE | 2023-01-24 07:56 | MHC.OFFVIS ---
Intake Vital Signs 01/24/23 07:58 Height 5 ft 6 in Weight 170 lb 6.677 oz BMI 27.5 BP 142/90 H Blood Pressure Location Lt brachial Position Sitting Pulse 80 Pulse Source Pulse Oximeter Temp 97 F Temp Source Skin Pulse Oximetry (%) 98 Oxygen Delivery Method Room Air Intake Visit Reasons: PSA Intake Note: Patient presents today to follow up on PsA. 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 She is currently on methotrexate 15 mg weekly, folic acid 1 mg daily and ibuprofen 600 mg a couple of times a week. At her last visit in the summer there was some flare-up of joint pains and the skin rash and we increased the methotrexate up the current dose. She said after about a month, her symptoms did improve. She notes less swelling across the PIP joints and there is no pain in the wrists. She is receiving some topical treatment for the psoriasis but also had recent treatment with 5 FU for her actinic skin problems. That has caused some redness in the skin as expected. 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 [facility] Medical History Psoriasis Vitamin D deficiency Long-term use of immunosuppressant medication History of squamous cell carcinoma of skin Vitamin deficiency FUNMI positive Essential (primary) hypertension Anxiety disorder, unspecified Surgical History History of total right hip replacement Family History Son No problems noted. Son No problems noted. Father Substance use disorder Social History Housing: House Alcohol intake: current Alcohol intake frequency: a few times a week Patient Tobacco Use Status: Never used Tobacco e-Cigarette/Vaping Use: Never Used Second Hand Smoke Exposure: No service: No Current occupational status: employed Current occupational exposures/hazards: No Cognitive needs: No Hearing needs: No Vision needs: Yes (contact/Reading glasses) Review of Systems Const Details: Some fatigue at the end of her workday. Negative for appetite change, weight change, fever, chills, malaise Eyes Details: Negative for vision change, dry eyes,headaches and dizziness Resp Details: Negative for SOB, cough and wheezing GI Details: Negative indigestion/heartburn, nausea, abdominal pain, bowel changes, diarrhea, constipation and bloody stool. Endo Details: Negative for polyuria and polydypsia Duarte/Lymph Details: Negative for excessive bruising or bleeding. Physical Exam Vital Signs: Last Vital Signs Temp 97 F 01/24/23 07:58 Pulse 80 01/24/23 07:58 BP 142/90 H 01/24/23 07:58 Pulse Ox 98 01/24/23 07:58 Oxygen Delivery Method Room Air 01/24/23 07:58 BMI result Body Mass Index 27.5 APPEARANCE: Patient in no acute distress EYES no redness, pupils equal and reactive to light, eyelids normal EXTREMITIES: No edema, no calf tenderness, normal peripheral pulses. NEURO: Oriented and alert x3. No focal weakness. Reflexes symmetric. Gait normal. SKIN: Some redness across the face and chest where she has been putting on the 5 FU. She also has some rosacea type redness of the nose. No psoriatic skin lesions. No nail changes. JOINT EXAM:.?? Cervical Spine:.? Full range of motion without pain; no tenderness. Thoracic Spine:.? No scoliosis.? No tenderness on palpation. Lumbar Spine:.? Alignment normal.? Full range of motion without pain, no tenderness. Chest Wall:.? No tenderness, swelling, increased warmth or erythema. Hands:.? Normal pain-free range of motion without tenderness, swelling, increased warmth or erythema. Able to make a full fist and has a good corporate human resources manager strength. Wrists:.? Normal pain-free range of motion without tenderness, swelling, increased warmth or erythema. Elbows:. Normal pain-free range of motion without tenderness, swelling, increased warmth or erythema. Shoulders:.?? Full range of motion without pain. No tenderness, weakness, swelling, increased warmth or erythema. Hips:? Right:? There is pain-free range of motion. Motion may be slightly limited.? No groin mass or tenderness.? Left:? Full range of motion without pain. Hip bursa:.? No tenderness. Knees:.?? Normal pain-free range of motion without tenderness, swelling, increased warmth or erythema.? There is no effusion or crepitation Ankles:.? Normal pain-free range of motion without tenderness, swelling, increased warmth or erythema. Feet:? Left:? There is mild 1st MTP bony enlargement without tenderness.? No other areas of tenderness or swelling.? Right:? Normal pain-free range of motion without tenderness, swelling, increased warmth or erythema. Results Reviewed Results Reviewed: Laboratory Tests 01/19/23 08:00 WBC 6.3 Hgb 13.8 ESR 10 Creatinine 0.82 AST 14 ALT 10 C-Reactive Protein 0.47 Assessment & Plan Assessment & Plan (1) Psoriasis: Code(s): L40.9 - Psoriasis, unspecified (2) Long-term use of immunosuppressant medication: Code(s): Z79.899 - Other long term acute care registered nurse (current) drug therapy (3) Psoriatic arthritis: Comment: Onset 2019. methotrexate started 06/2020 Code(s): L40.50 - Arthropathic psoriasis, unspecified Plan Psoriatic arthritis and psoriasis with improvement in her symptoms with the increased methotrexate. She does not seem to have any side effects with that and the blood work looks okay so I think it can be continued as above. Some of the pains are in the PIP joints where she could have some early, although not detectable on exam, osteoarthritis. We will continue meds as above and plan to see her back in 4 months. Lab is recommended again in 2 months and 4 months. Orders: Orders C Reactive Protein Today L40.50 - Arthropathic psoriasis, unspecified Alanine Aminotransferase Today L40.50 - Arthropathic psoriasis, unspecified, Z79.899 - Other long term acute care registered nurse (current) drug therapy Aspartate Amino Transferase Today L40.50 - Arthropathic psoriasis, unspecified, Z79.899 - Other detention (current) drug therapy Complete Blood Count Auto Diff Today L40.50 - Arthropathic psoriasis, unspecified, Z79.899 - Other detention (current) drug therapy Creatinine Today L40.50 - Arthropathic psoriasis, unspecified, Z79.899 - Other detention (current) drug therapy C Reactive Protein 1 Month L40.50 - Arthropathic psoriasis, unspecified Creatinine 1 Month L40.50 - Arthropathic psoriasis, unspecified, Z79.899 - Other detention (current) drug therapy Erythrocyte Sedimentation Rate Today L40.50 - Arthropathic psoriasis, unspecified Erythrocyte Sedimentation Rate 1 Month L40.50 - Arthropathic psoriasis, unspecified Alanine Aminotransferase 1 Month L40.50 - Arthropathic psoriasis, unspecified, Z79.899 - Other long term acute care registered nurse (current) drug therapy Aspartate Amino Transferase 1 Month L40.50 - Arthropathic psoriasis, unspecified, Z79.899 - Other long term acute care registered nurse (current) drug therapy Complete Blood Count Auto Diff 1 Month L40.50 - Arthropathic psoriasis, unspecified, Z79.899 - Other long term acute care registered nurse (current) drug therapy Coding Level of Care Code Est Pt Level 3 (37096) Diagnoses Psoriasis L40.9 Long-term use of immunosuppressant medication Z79.899 Psoriatic arthritis L40.50
[2023-01-24 07:58] VITALS: BP 142/90; PULSE 80; TEMP 36.1; O2SAT 98; BMI 27.5
== END 2023-01-24 08:22 | disposition home or self-care (01) ==
PROVIDERS: PCP Internal Medicine; Visit Provider Internal Medicine Rheumatology
DX: L40.9 Psoriasis, unspecified (principal); Z79.899 Other long term (current) drug therapy; L40.50 Arthropathic psoriasis, unspecified
CPT/HCPCS: 99213

== ENCOUNTER → 2023-01-24 07:55 | Outpatient (BNVA) | payer OTHER, SELFPAY | PROVIDERS: PCP Internal Medicine; Visit Provider Internal Medicine Rheumatology ==

== ENCOUNTER 2023-05-22 15:40 | Outpatient (REF) | payer OTHER, SELFPAY ==
[2023-05-22 15:52] LABS: MANUAL DIFF FLAG NO
[2023-05-22 18:40] LABS: Basophils Percent Auto 0.4 % (0-2); Eosinophils Absolute Auto 0.1 X10*3/uL (0.0-0.4); Eosinophils Percent Auto 1.3 % (0-4); Hematocrit 40.5 % (37.0-47.0); Imm Gran Abs Auto 0.02 X10*3/uL (0.00-0.03); Imm Gran Pct Auto 0.3 % (0.0-0.4); Lymphocytes Percent Auto 30.3 % (20-40); Mean Corpuscular HGB Conc 34.6 g/dl (31.0-35.0); Mean Corpuscular Hemoglobin 32.2 pg (27.0-33.0); Mean Corpuscular Volume 93.1 fL (80.0-98.0); Mean Platelet Volume 9.2 fL (9.4-12.3); Monocytes Absolute Auto 0.6 X10*3/uL (0.1-1.2); Neutrophils Absolute Auto 3.9 x10*3/uL (2.0-8.3); Neutrophils Percent Auto 58.7 % (45-73); Platelet Count 391 X10*3/uL (160-400); Red Blood Count 4.35 X10*6/uL (4.20-5.50); White Blood Count 6.7 X10*3/uL (4.8-10.8)
[2023-05-22 18:57] LABS: Alanine Aminotransferase 10 U/L (0-31); Aspartate Amino Transferase 13 U/L (5-31); C Reactive Protein 0.49 mg/dL (< or = 0.50); Estimated Glomerular Filt Rate > 60
[2023-05-22 19:45] LABS: Erythrocyte Sedimentation Rate 5 MM/HR (0-20)
== END 2023-05-22 15:41 | disposition home or self-care (01) ==
LOC: HO.LAB 15:40
PROVIDERS: PCP Internal Medicine; Visit Provider Internal Medicine Rheumatology
DX: L40.50 Arthropathic psoriasis, unspecified (principal); Z79.899 Other long term (current) drug therapy
CPT/HCPCS: 36415; 82565; 84450; 84460; 85025; 85652; 86140

== ENCOUNTER 2023-05-29 09:39 | Outpatient (AMB) | payer OTHER, SELFPAY ==
--- NOTE | 2023-05-29 09:40 | MHC.OFFVIS ---
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 Superintendent Meters Required: No Accompanied by: Self / Same As Patient Allergies No Known Allergies Allergy (Verified 01/24/23 08:02) HPI HPI Comments History of Present Illness Details MKs. Olsen 57yiF returns for evaluation of her psoriatic arthritis. She is currently on methotrexate 15 mg weekly, folic acid 1 mg daily and ibuprofen 600 mg a couple of times a week. At her 10/2022 visit in the summer there was some flare-up of joint pains and the skin rash and we increased the methotrexate from 4 pills to the current dose. She said after about a month, her symptoms did improve. She notes less swelling across the PIP joints and there is no pain in the wrists. She is receiving some topical treatment for the psoriasis but also had recent treatment with 5 FU for her actinic skin problems. That has caused some redness in the skin as expected. 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 [facility] Medical History Psoriasis Vitamin D deficiency Long-term use of immunosuppressant medication History of squamous cell carcinoma of skin Vitamin deficiency FUNMI positive Essential (primary) hypertension Anxiety disorder, unspecified Surgical History History of total right hip replacement Family History Son No problems noted. Son No problems noted. Father Substance use disorder Social History Housing: House Alcohol intake: current Alcohol intake frequency: a few times a week Patient Tobacco Use Status: Never used Tobacco e-Cigarette/Vaping Use: Never Used Second Hand Smoke Exposure: No service: No Current occupational status: employed Current occupational exposures/hazards: No Cognitive needs: No Hearing needs: No Vision needs: Yes (contact/Reading glasses) Physical Exam Vital Signs: Last Vital Signs Temp 97 F 05/29/23 09:41 Pulse 102 H 05/29/23 09:41 BP 124/82 05/29/23 09:41 Pulse Ox 98 05/29/23 09:41 Oxygen Delivery Method Room Air 05/29/23 09:41 BMI result Body Mass Index 26.6 APPEARANCE: Patient in no acute distress EYES no redness, eyelids normal EXTREMITIES: No edema, no calf tenderness, normal peripheral pulses. NEURO: Oriented and alert x3. No focal weakness. Reflexes symmetric. Gait normal. SKIN: No psoriatic skin lesions. No nail changes. dry skin JOINT EXAM:.?? Cervical Spine:.? Full range of motion without pain; no tenderness. Thoracic Spine:.? No scoliosis.? No tenderness on palpation. Lumbar Spine:.? Alignment normal.? Full range of motion without pain, no tenderness. Chest Wall:.? No tenderness, swelling, increased warmth or erythema. Hands:.? Normal pain-free range of motion without tenderness, swelling, increased warmth or erythema. Able to make a full fist and has a good spindle repairer strength. Wrists:.? Normal pain-free range of motion without tenderness, swelling, increased warmth or erythema. Elbows:. Normal pain-free range of motion without tenderness, swelling, increased warmth or erythema. Shoulders:.?? Full range of motion without pain. No tenderness, weakness, swelling, increased warmth or erythema. Hips:? Right:? There is pain-free range of motion. Motion may be slightly limited.? No groin mass or tenderness.? Left:? Full range of motion without pain. Hip bursa:.? No tenderness. Knees:.?? Normal pain-free range of motion without tenderness, swelling, increased warmth or erythema.? There is no effusion or crepitation Ankles:.? Normal pain-free range of motion without tenderness, swelling, increased warmth or erythema. Feet:? Left:? There is mild 1st MTP bony enlargement without tenderness.? No other areas of tenderness or swelling.? Right:? Normal pain-free range of motion without tenderness, swelling, increased warmth or erythema. Results Reviewed Results Reviewed: Laboratory Tests Laboratory Tests 05/22/23 15:51 AST 13 ALT 10 C-Reactive Protein 0.49 05/22/23 15:51 WBC 6.7 RBC 4.35 Hgb 14.0 Hct 40.5 ESR 5 Estimated GFR > 60 Assessment & Plan Assessment & Plan (1) Psoriasis: Code(s): L40.9 - Psoriasis, unspecified (2) Long-term use of immunosuppressant medication: Code(s): Z79.899 - Other nursing home (current) drug therapy (3) Psoriatic arthritis: Comment: Onset 2019. 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 Sheriff 57yoF with Psoriatic arthritis and psoriasis continues on methotrexate and folic acid and her symptoms appear well managed She does not seem to have any side effects with the increase and the blood work looks okay so it will be continued as above. Some of the pains are in the PIP joints where she could have some early, although not detectable on exam, osteoarthritis. We will continue MTX 2.5mg 6 pills as above and plan to see her back in 4 months. She denies an side effects of hair shedding, fatgiue or mouth sores. She says she does get cold sores long before disease onset and uses a medication prescribed by [facility]. She will call the office with the name to be added to her records. Lab orders in place Right Hip replacement 07/2022 Orders: Orders C Reactive Protein 4 Months L40.50 - Arthropathic psoriasis, unspecified Creatinine 4 Months L40.50 - Arthropathic psoriasis, unspecified, Z79.899 - Other regional recruiter (current) drug therapy Erythrocyte Sedimentation Rate 4 Months L40.50 - Arthropathic psoriasis, unspecified Alanine Aminotransferase 4 Months L40.50 - Arthropathic psoriasis, unspecified, Z79.899 - Other nursing home (current) drug therapy Aspartate Amino Transferase 4 Months L40.50 - Arthropathic psoriasis, unspecified, Z79.899 - Other regional recruiter (current) drug therapy Complete Blood Count Auto Diff 4 Months L40.50 - Arthropathic psoriasis, unspecified, Z79.899 - Other regional recruiter (current) drug therapy Coding Level of Care Code Est Pt Level 3 (00933) Diagnoses Psoriasis L40.9 Long-term use of immunosuppressant medication Z79.899 Psoriatic arthritis L40.50
[2023-05-29 09:41] VITALS: BP 124/82; PULSE 102; TEMP 36.1; O2SAT 98; BMI 26.6
== END 2023-05-29 10:05 | disposition home or self-care (01) ==
PROVIDERS: PCP Internal Medicine; Visit Provider Nurse Practitioner Family
DX: L40.9 Psoriasis, unspecified (principal); Z79.899 Other long term (current) drug therapy; L40.50 Arthropathic psoriasis, unspecified
CPT/HCPCS: 99213

== ENCOUNTER → 2023-05-29 09:39 | Outpatient (BNVA) | payer OTHER, SELFPAY | PROVIDERS: PCP Internal Medicine; Visit Provider Nurse Practitioner Family ==

== ENCOUNTER 2023-06-20 15:45 | Outpatient (REF) | payer OTHER, SELFPAY ==
--- NOTE | ~2023-06-20 | MM_ITS ---
EXAMINATION: MM SCREENING DIGITAL BREAST TOMOSYNTHESIS, BILATERAL CLINICAL INFORMATION: Screening. Asymptomatic. COMPARISON: Mammography: This study is compared with prior exams dating back to 2019. TECHNIQUE: Digital breast tomosynthesis is performed in both the craniocaudal and mediolateral oblique views along with computer-aided detection (CAD). Synthesized 2D images are generated from the tomosynthesis. FINDINGS: There are scattered areas of fibroglandular density (ACR BI-RADS breast composition Category b). There are no significant masses, abnormal calcifications, or other abnormalities. There is an unchanged, oval mass in the upper outer quadrant of the left breast containing a biopsy tissue marker. This narvaez the site of prior benign percutaneous biopsy. MM/MM tomosynthesis screening BI IMPRESSION: No mammographic evidence of malignancy. ASSESSMENT: BI-RADS BI-RADS 2 - Benign Findings RECOMMENDATION: Routine annual mammography screening. 1 year F/U This examination should not preclude the clinical evaluation of a suspicious palpable abnormality. This patient's information was entered into a reminder system with a target due date for their next mammogram.
== END 2023-06-20 15:46 | disposition home or self-care (01) ==
LOC: HO.MAMMO 15:45
PROVIDERS: PCP Internal Medicine; Visit Provider Internal Medicine
DX: Z12.31 Encounter for screening mammogram for malignant neoplasm of breast (principal)
CPT/HCPCS: 77063; 77067

== ENCOUNTER → 2023-06-20 16:00 | Outpatient (BNV) | payer OTHER, SELFPAY | PROVIDERS: PCP Internal Medicine; Visit Provider Radiology Diagnostic Radiology | DX: Z12.31 Encounter for screening mammogram for malignant neoplasm of breast (principal) | CPT/HCPCS: 77063; 77067 ==

== ENCOUNTER 2023-06-28 07:54 | Outpatient (AMB) | payer OTHER, SELFPAY ==
[2023-06-28 08:00] VITALS: BP 112/62; PULSE 88; O2SAT 98; BMI 25.8
--- NOTE | 2023-06-28 08:00 | A.OFFPC_ITS ---
Vital Signs 06/28/23 08:00 Height 5 ft 6 in Weight 160 lb BMI 25.8 BP 112/62 Blood Pressure Location Lt brachial Position Sitting Pulse 88 Pulse Source Pulse Oximeter Pulse Oximetry (%) 98 Oxygen Delivery Method Room Air Intake Visit Reasons: 6mth f/u Allergies No Known Allergies Allergy (Verified 06/28/23 08:26) Medication List - Last Reconciled 06/28/23 by Freddy Dinh MD alprazolam 0.5 mg PO BEDTIME PRN folic acid 1 mg PO DAILY ibuprofen 600 mg PO Q8H PRN methotrexate sodium 15 mg (6 x 2.5 mg) PO QWEEK triamterene-hydrochlorothiazid 37.5-25 mg 1 tab PO QAM Tobacco use date assessed: 06/28/23 Dental Screening Dental Screen Date: 06/28/23 Did you have a dental visit in the last 12 months?: Yes Did you have a dental problem in the last 6 months where you did not have access to dental care?: No Was dental information given to patient?: Patient has dentist HPI 6m f/u HPI Details 57-year-old female presents to the offic e to discuss her chronic medical conditions. Patient is at baseline state of health. Her rheumatological issues are at baseline and symptoms have been well controlled after her dosages for medications were increased in the last visit. Able to function and do all activities of daily living. Patient exercises 5 times a week. She drinks alcohol 1 to 2 times a week. [facility] Medical History Psoriasis Vitamin D deficiency Long-term use of immunosuppressant medication History of squamous cell carcinoma of skin Vitamin deficiency FUNMI positive Essential (primary) hypertension Anxiety disorder, unspecified Surgical History History of total right hip replacement Family History Son No problems noted. Son No problems noted. Father Substance use disorder Social History Housing: House Alcohol intake: current Alcohol intake frequency: a few times a week Patient Tobacco Use Status: Never used Tobacco e-Cigarette/Vaping Use: Never Used Second Hand Smoke Exposure: No service: No Current occupational status: employed Current occupational exposures/hazards: No Cognitive needs: No Hearing needs: No Vision needs: Yes (contact/Reading glasses) Questionnaire PHQ-9 Over the last 2 weeks, how often have you been bothered by any of the following problems? 1. Little interest or pleasure in doing things: not at all 2. Feeling down, depressed, or hopeless: not at all 3. Trouble falling or staying asleep, or sleeping too much: not at all 4. Feeling tired or having little energy: not at all 5. Poor appetite or overeating: not at all 6. Feeling bad about yourself - or that you are a failure or have let yourself or your family down: not at all 7. Trouble concentrating on things, such as reading the newspaper or watching television: not at all 8. Moving or speaking so slowly that other people could have noticed. Or the opposite - being so fidgety or restless that you have been moving around a lot more than usual: not at all 9. Thoughts that you would be better off or of hurting yourself in some wa y: not at all Total score: 0 Depression Screening Interpretation: Negative Depression Screening Done: Yes Source: Developed by Drs. Osmany Sung, Carie Araiza, Kan Quijano and colleagues, with an educational jessica from [employer]. Thrive Questionnaire Date Thrive assessed: 06/28/23 I am a: Patient What is your living situation today?: I have a steady place to live Within the past 12 months, did the food you bought not last and you didn't have the money to get more?: Never true Within the past 12 months, did you worry whether your food would run out before you got money to buy more?: Never true Do you have trouble paying for medicines?: No Do you have trouble getting transportation to medical appointments?: No Do you have trouble paying your heating and electricity bill?: No Do you have trouble taking care of your child, family member or friend?: No Do you have trouble with day-to-day activities such as bathing, preparing meals, shopping, managing finances, etc.?: No Are you currently unemployed and looking for a job?: No Are you interested in more education?: No Currently or been in a relationship where the following occur: no concerns reported THRIVE Score: 0 AUDIT C Alcohol Use Questionnaire (AUDIT-C) 1. How often do you have a drink containing alcohol?: 2-3 times a week 2. How many drinks containing alcohol do you have on a typical day when you are drinking?: 3 or 4 3. How often do you have six or more drinks on one occasion?: Never Total Score: 4 Score Reviewed/Action Taken: Yes CHIP-7 AMB Questionnaire CHIP-7 Date CHIP - 7 assessed: 06/28/23 Feeling nervous, anxious, or on edge: 0 = Not at all Not being able to stop or control worryin = Not at all Worrying too much about different things: 0 = Not at all Trouble relaxin = Not at all Being so restless that it is hard to sit still: 0 = Not at all Becoming easily annoyed or irritable: 0 = Not at all Feeling afraid as if something awful might happen: 0 = Not at all Total CHIP-7 score (0-4 normal; 5-9 mild; 10-14 moderate; 15-21 severe): 0 Source: Developed by Drs. Osmany Sung, Carie Araiza, Kan Quijano and colleagues, with an educational jessica from [employer]. Physical exam (Primary Care) Vital Signs: Last Vital Signs Pulse 88 06/28/23 08:00 BP 112/62 06/28/23 08:00 Pulse Ox 98 06/28/23 08:00 Oxygen Delivery Method Room Air 06/28/23 08:00 Care Plan Goal for BP management: Blood pressure is in range. BMI result Body Mass Index 25.8 Tobacco/Smoking Status: Tobacco use Status Tobacco use date assessed 06/28/23 06/28/23 08:07 Patient Tobacco Use Status Never used Tobacco 06/28/23 08:07 e-Cigarette/Vaping Use Never Used 06/28/23 08:07 PHQ-9: PHQ-9 Score PHQ-9: Total score 0 06/28/23 08:07 Depression Screening Interpretation: Negative Thrive Assessment: Date of Thrive Assessment Date Thrive assessed 06/28/23 06/28/23 08:07 Currently or been in a relationship where the following occur: no concerns reported Const General: cooperative and healthy appearing Nutritional Appearance: well nourished Orientation/consciousness: patient oriented x3 Limitations: no limitations HENMT Head: Yes normal to inspection Eyes General: appearance normal, both eyes and all related structures Neck Neck: Yes normal visual inspection Chest Chest palpation & inspection: normal palpation of entire chest wall Resp Effort & Inspection: normal respiratory effort Neuro General: patient oriented x3 Assessment and Plan Assessment & Plan (1) Psoriasis: Code(s): L40.9 - Psoriasis, unspecified Plan: Condition is stable. No skin lesions present. (2) Osteoarthritis of right hip: Code(s): M16.11 - Unilateral primary osteoarthritis, right hip Plan: After the hip surgery, patient's symptoms are very well controlled. She is exercising 5 times a week. (3) Essential (primary) hypertension: Code(s): I10 - Essential (primary) hypertension Plan: Blood pressure is in range. Continue current medications. (4) Psoriatic arthritis: Comment: Onset 2019. methotrexate started 06/2020 Code(s): L40.50 - Arthropathic psoriasis, unspecified Plan: Continue methotrexate same dosage. Coding Level of Care Code Est Pt Level 4 (74926) Diagnoses Psoriasis L40.9 Osteoarthritis of right hip M16.11 Essential (primary) hypertension I10 Psoriatic arthritis L40.50 Additional Codes PHQ-9 - 17503 - PHQ-9 Billing: ([id number])
== END 2023-06-28 08:21 | disposition home or self-care (01) ==
PROVIDERS: PCP Internal Medicine; Visit Provider Internal Medicine
DX: L40.9 Psoriasis, unspecified (principal); M16.11 Unilateral primary osteoarthritis, right hip; I10 Essential (primary) hypertension; L40.50 Arthropathic psoriasis, unspecified
CPT/HCPCS: 99214

== ENCOUNTER 2023-09-14 07:53 | Outpatient (REF) | payer OTHER, SELFPAY ==
[2023-09-14 10:59] LABS: MANUAL DIFF FLAG NO
[2023-09-14 11:08] LABS: Basophils Percent Auto 0.4 % (0-2); Eosinophils Absolute Auto 0.1 X10*3/uL (0.0-0.4); Eosinophils Percent Auto 1.6 % (0-4); Hemoglobin 13.9 g/dl (12.0-16.0); Imm Gran Abs Auto 0.01 X10*3/uL (0.00-0.03); Imm Gran Pct Auto 0.2 % (0.0-0.4); Lymphocytes Absolute Auto 1.4 X10*3/uL (1.2-4.9); Mean Corpuscular HGB Conc 34.8 g/dl (31.0-35.0); Mean Platelet Volume 8.9 fL (9.4-12.3); Monocytes Absolute Auto 0.6 X10*3/uL (0.1-1.2); Monocytes Percent Auto 11.6 % (2-11); Neutrophils Absolute Auto 3.4 x10*3/uL (2.0-8.3); Neutrophils Percent Auto 61.2 % (45-73); Platelet Count 389 X10*3/uL (160-400); Red Blood Count 4.35 X10*6/uL (4.20-5.50); Red Cell Distribution Width 12.5 % (11.0-16.0); White Blood Count 5.5 X10*3/uL (4.8-10.8)
[2023-09-14 11:32] LABS: Alanine Aminotransferase 7 U/L (0-31); Aspartate Amino Transferase 11 U/L (5-31); C Reactive Protein 0.25 mg/dL (< or = 0.50); Estimated Glomerular Filt Rate > 60
[2023-09-14 11:42] LABS: Erythrocyte Sedimentation Rate 6 MM/HR (0-20)
== END 2023-09-14 07:54 | disposition home or self-care (01) ==
LOC: HO.10HDL 07:53
PROVIDERS: Visit Provider Nurse Practitioner Family
DX: L40.50 Arthropathic psoriasis, unspecified (principal); Z79.899 Other long term (current) drug therapy
CPT/HCPCS: 36415; 82565; 84450; 84460; 85025; 85652; 86140

== ENCOUNTER 2024-01-03 07:54 | Outpatient (AMB) | payer BC, SELFPAY ==
[2024-01-03 08:04] VITALS: BP 118/78; PULSE 74; O2SAT 99; BMI 24.0
--- NOTE | 2024-01-03 08:04 | A.OFFPC_ITS ---
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 Patient is at baseline state of health. Her arthritis is very well controlled on the methotrexate. She reports no symptoms of pain or discomfort. Able to function and do all activities of daily living. Patient exercises regularly. Intermittent use of alprazolam for anxiety. Appetite is normal. Sleep patterns are normal. [facility] Medical History Psoriasis Vitamin D deficiency Long-term use of immunosuppressant medication History of squamous cell carcinoma of skin Vitamin deficiency FUNMI positive Essential (primary) hypertension Anxiety disorder, unspecified Surgical History History of colonoscopy (~11/13/19) History of total right hip replacement Family History Son No problems noted. Son No problems noted. Father Substance use disorder Social History Housing: House Alcohol intake: current Alcohol intake frequency: a few times a week Patient Tobacco Use Status: Never used Tobacco e-Cigarette/Vaping Use: Never Used Second Hand Smoke Exposure: No service: No Current occupational status: employed Current occupational exposures/hazards: No Cognitive needs: No Hearing needs: No Vision needs: Yes (contact/Reading glasses) Questionnaire Thrive Questionnaire Date Thrive assessed: 06/28/23 Are you currently unemployed and looking for a job?: No AUDIT C Alcohol Use Questionnaire (AUDIT-C) 2. How many drinks containing alcohol do you have on a typical day when you are drinking?: 1 or 2 3. How often do you have six or more drinks on one occasion?: Less than monthly Total Score: 1 CHIP-7 AMB Questionnaire CHIP-7 Date CHIP - 7 assessed: 06/28/23 Source: Developed by Drs. Osmany Sung, Carie Araiza, Kan Quijano and colleagues, with an educational jessica from [employer]. Physical exam (Primary Care) Vital Signs: Last Vital Signs Pulse 74 01/03/24 08:04 BP 118/78 01/03/24 08:04 Pulse Ox 99 01/03/24 08:04 Oxygen Delivery Method Room Air 01/03/24 08:04 Care Plan Goal for BP management: Blood pressure is in range. BMI result Body Mass Index 24.0 Tobacco/Smoking Status: Tobacco use Status Tobacco use date assessed 06/28/23 01/03/24 08:08 Patient Tobacco Use Status Never used Tobacco 01/03/24 08:08 e-Cigarette/Vaping Use Never Used 01/03/24 08:08 Thrive Assessment: Date of Thrive Assessment Date Thrive assessed 06/28/23 01/03/24 08:08 Const General: cooperative and healthy appearing Nutritional Appearance: well nourished Orientation/consciousness: patient oriented x3 Limitations: no limitations HENMT Head: Yes normal to inspection Eyes General: appearance normal, both eyes and all related structures Neck Neck: Yes normal visual inspection Chest Chest palpation & inspection: normal palpation of entire chest wall Resp Effort & Inspection: normal respiratory effort Neuro General: patient oriented x3 Assessment and Plan Assessment & Plan (1) Psoriasis: Code(s): L40.9 - Psoriasis, unspecified Plan: Condition is stable. Currently on no medications. (2) Osteoarthritis of right hip: Code(s): M16.11 - Unilateral primary osteoarthritis, right hip Plan: Pain symptoms are well controlled. (3) Essential (primary) hypertension: Code(s): I10 - Essential (primary) hypertension Plan: Blood pressure is in range. Medications to be continued at same dosage. Blood work has been ordered. Will call with results. (4) Anxiety disorder, unspecified: Code(s): F41.9 - Anxiety disorder, unspecified Qualifiers: Anxiety disorder type: generalized anxiety disorder Qualified Code(s): F41.1 - Generalized anxiety disorder Plan: Continue current medications. Coding Level of Care Code Est Pt Level 4 (71427) Complex EM visit Add On G2211 Diagnoses Psoriasis L40.9 Osteoarthritis of right hip M16.11 Essential (primary) hypertension I10 Generalized anxiety disorder F41.1 Anxiety disorder type: generalized anxiety disorder
== END 2024-01-03 08:22 | disposition home or self-care (01) ==
PROVIDERS: PCP Internal Medicine; Visit Provider Internal Medicine
DX: L40.9 Psoriasis, unspecified (principal); M16.11 Unilateral primary osteoarthritis, right hip; I10 Essential (primary) hypertension; F41.1 Generalized anxiety disorder

== ENCOUNTER → 2024-01-03 07:54 | Outpatient (BNVA) | payer BC, SELFPAY | PROVIDERS: PCP Internal Medicine; Visit Provider Internal Medicine | DX: L40.9 Psoriasis, unspecified (principal); M16.11 Unilateral primary osteoarthritis, right hip; I10 Essential (primary) hypertension; F41.1 Generalized anxiety disorder ==

== ENCOUNTER 2024-01-09 07:26 | Outpatient (AMB) | payer BC, SELFPAY ==
--- NOTE | 2024-01-09 07:30 | A.OFFVIS_ITS ---
Vital Signs 01/09/24 07:34 Height 5 ft 6 in Weight 150 lb 9.211 oz BMI 24.3 BP 115/62 Blood Pressure Location Rt brachial Position Sitting Pulse 79 Pulse Source Pulse Oximeter Pulse Oximetry (%) 100 Oxygen Delivery Method Room Air Intake Visit Reasons: PSA Intake Note: Patient present for PsA. Allergies No Known Allergies Allergy (Verified 01/09/24 07:33) Medication List - Last Reconciled 01/09/24 by Jillian Flowers MD alprazolam 0.5 mg PO BEDTIME PRN folic acid 1 mg PO DAILY ibuprofen 600 mg PO Q8H PRN methotrexate sodium 15 mg (6 x 2.5 mg) PO QWEEK triamterene-hydrochlorothiazid 37.5-25 mg 1 tab PO QAM HPI Comments Details: Patient is a 58-year-old female with psoriasis and psoriatic arthritis here for follow-up. Interval History: Patient last seen 05/29/2023 with Merry Snyder. At that time patient was stable. No changes made to medication. Today, patient states that she is doing well. Has been doing well since she increased the methotrexate from 4 pills to 6 pills. Still having some psoriatic break out on her hands which her lawn caretaker recently biopsied. Denies dactylitis, prolonged morning stiffness, eye inflammation or redness. Does complain of intermittent left hip pain. Notes that she had a right hip replacement in 2022. Rheumatology History: Patient 1st started having symptoms in the fall of 2019 but was finally diagnosed with psoriatic arthritis and psoriasis in the spring of 2022. Started on 4 pills of methotrexate however had persistent symptoms and was increased to 6 pills of methotrexate 03/2023 Medication History: Methotrexate 15mg (6 pills) weekly Folic Acid 1mg PFSH Medical History Psoriasis Vitamin D deficiency Long-term use of immunosuppressant medication History of squamous cell carcinoma of skin Vitamin deficiency FUNMI positive Essential (primary) hypertension Anxiety disorder, unspecified Surgical History History of colonoscopy (~11/13/19) History of total right hip replacement Family History Son No problems noted. Son No problems noted. Father Substance use disorder Social History (Reviewed 01/09/24 @ 07:34 by Stefany Plasencia [facility]) Housing: House Alcohol intake: current Alcohol intake frequency: a few times a week Patient Tobacco Use Status: Never used Tobacco e-Cigarette/Vaping Use: Never Used Second Hand Smoke Exposure: No service: No Current occupational status: employed Current occupational exposures/hazards: No Cognitive needs: No Hearing needs: No Vision needs: Yes (contact/Reading glasses) Review of Systems Const Details: Review of Systems Constitutional: Denies fever, chills, weight loss ENT: Denies vision changes, eye pain or eye redness, dental caries, dry mouth GI: Denies nausea, vomiting, diarrhea, abdominal pain, change in BM Pulm: Denies SOB, GUSMAN, hemoptysis, wheezing Cards: Denies chest pain, palpitations Skin: Denies Raynaud's, rash, nail changes, photosensitivity, 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 ?Gait normal. Constitutional: ?Mucous membranes pink and moist patient alert and cooperative HEENT: ?Conjunctiva and sclera clear. ?Pupils equal round and reactive to light. ?No lymphadenopathy. ?Normal dentition. Resp: ?Normal respiratory effort and able to speak in complete sentences. ?Clear to auscultation bilaterally. ?No crackles, rales, rhonchi, wheezes heard. Cards: ?Regular rate and rhythm. ?S1 and S2 heard no murmurs. ?Radial pulses intact bilaterally MSK: ?No deformity, swelling, abnormalities noted to bilateral hands. ?No evidence of synovitis. ?Able to move all joints with full range of motion, without limitation. Skin: Patient with scaly rash over her dorsal palms and her extensor surface of the knees. Results Reviewed Results Reviewed: All results and imaging reviewed. XR Bilateral Hands 03/2020 FINDINGS: There is no acute fracture or dislocation. The joint spaces are unremarkable. The carpal bones are normally aligned. The distal radius and ulna are intact. The soft tissues are unremarkable. XR Right Hip 08/2021 FINDINGS: There is no evidence of acute fracture or dislocation of the right hip. There is some narrowing with sclerosis involving the superior joint space. There appears to be a subchondral cyst formation about the femoral head without femoral head collapse with some mild articular irregularity. Marginal spurring is present. Laboratory Tests 05/22/23 09/14/23 15:51 07:56 WBC 6.7 5.5 RBC 4.35 4.35 Hgb 14.0 13.9 Hct 40.5 40.0 Plt Count 391 389 ESR 5 6 AST 13 11 ALT 10 7 C-Reactive Protein 0.49 0.25 Assessment & Plan Assessment & Plan (1) Psoriatic arthritis: Comment: Onset 2019. methotrexate started 06/2020 Code(s): L40.50 - Arthropathic psoriasis, unspecified Category: Medical Plan: #Psoriatic Arthritis Patient with the psoriatic arthritis disease well controlled on methotrexate 15 mg weekly. No side effects of the methotrexate and is doing well on 1 mg folic acid daily supplementation. (2) Osteoarthritis of right hip: Code(s): M16.11 - Unilateral primary osteoarthritis, right hip Category: Medical Plan: #Osteoarthritis Right Hip Patient will osteoarthritis of her right hip as per review of x-rays done in 2021. Recommended exercise and can use Tylenol as needed. Also informed her that we can do steroid injections of the hip if needed. 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 Limit alcohol and avoid Bactrim ? Monitoring: CBC, BMP, LFTs, hepatitis serologies as needed ? Methotrexate is teratogenic. If planning need to discontinue 3 months prior to conception Plan I spent 35 minutes reviewing the record and labs, seeing the patient, discussing the treatment plan and documenting in the medical record Orders: Orders Comprehensive Met. Panel 4 Months L40.50 - Arthropathic psoriasis, unspecified, Z79.899 - Other senior care (current) drug therapy C Reactive Protein 4 Months L40.50 - Arthropathic psoriasis, unspecified, Z79.899 - Other senior care (current) drug therapy Complete Blood Count Auto Diff 4 Months L40.50 - Arthropathic psoriasis, unspecified, Z79.899 - Other parts counterman (current) drug therapy Erythrocyte Sedimentation Rate 4 Months L40.50 - Arthropathic psoriasis, unspecified, Z79.899 - Other senior care (current) drug therapy Hepatitis A,B,C Profile 4 Months L40.50 - Arthropathic psoriasis, unspecified, Z79.899 - Other senior care (current) drug therapy Coding Level of Care Code Est Pt Level 3 (04243) Diagnoses Psoriatic arthritis L40.50 Osteoarthritis of right hip M16.11 Long-term use of immunosuppressant medication Z79.899
[2024-01-09 07:34] VITALS: BP 115/62; PULSE 79; O2SAT 100; BMI 24.3
== END 2024-01-09 08:01 | disposition home or self-care (01) ==
PROVIDERS: PCP Internal Medicine; Visit Provider Student in an Organized Health Care Education/Training Program
DX: L40.50 Arthropathic psoriasis, unspecified (principal); M16.11 Unilateral primary osteoarthritis, right hip; Z79.899 Other long term (current) drug therapy
CPT/HCPCS: 99213

== ENCOUNTER → 2024-01-09 07:26 | Outpatient (BNVA) | payer BC, SELFPAY | PROVIDERS: PCP Internal Medicine; Visit Provider Student in an Organized Health Care Education/Training Program ==

== ENCOUNTER 2024-01-18 08:27 | Outpatient (AMB) | payer BC, SELFPAY ==
--- NOTE | 2024-01-18 08:31 | MHC.OFFWIV ---
Intake Vital Signs 01/18/24 08:33 Height 5 ft 6 in Weight 150 lb BMI 24.2 BP 118/70 Blood Pressure Location Lt brachial Position Sitting Pulse 97 Pulse Source Pulse Oximeter Temp 97.8 F Temp Source Oral Pulse Oximetry (%) 98 Intake Visit Reasons: EP-lt eye swollen & itching Intake Note: pt is here for left eye swelling and itching, patient states she slept with her contacts in and she stated she has been experiencing irritation since Patient Tobacco Use Status: Never used Tobacco Allergies No Known Allergies Allergy (Verified 01/18/24 08:34) Medication List - Last Reconciled 01/18/24 by Eddie Cee MD alprazolam 0.5 mg PO BEDTIME PRN folic acid 1 mg PO DAILY ibuprofen 600 mg PO Q8H PRN methotrexate sodium 15 mg (6 x 2.5 mg) PO QWEEK triamterene-hydrochlorothiazid 37.5-25 mg 1 tab PO QAM Do you need a note to return to daycare/school/sports/work: No HPI EP-lt eye swollen & itching HPI Details Patient is a 58-year-old female came in today to be evaluated for redness in her left eye Which started 2 days ago, patient felt itchy in her eye and she dropped it After that redness got worse and started weeping Mostly medial corner of left eye Vision is intact, there is no pain with the movement of eyeball There is no fever no chills On examination her eye exam is normal except for conjunctival injection mostly medial aspect There is some clear fluid as well I have sent Polytrim eyedrops Patient was notified that if I does not improve within 24-48 hours she need to see an eye doctor [facility], [facility] Medical History Psoriasis Vitamin D deficiency Long-term use of immunosuppressant medication History of squamous cell carcinoma of skin Vitamin deficiency FUNMI positive Essential (primary) hypertension Anxiety disorder, unspecified Surgical History History of colonoscopy (~11/13/19) History of total right hip replacement Family History Son No problems noted. Son No problems noted. Father Substance use disorder Social History Housing: House Alcohol intake: current Alcohol intake frequency: a few times a week Patient Tobacco Use Status: Never used Tobacco e-Cigarette/Vaping Use: Never Used Second Hand Smoke Exposure: No service: No Current occupational status: employed Current occupational exposures/hazards: No Cognitive needs: No Hearing needs: No Vision needs: Yes (contact/Reading glasses) Review of Systems Const All systems reviewed & are unremarkable except as noted in HPI and below Physical Exam Vital Signs: Last Vital Signs Temp 97.8 F 01/18/24 08:33 Pulse 97 01/18/24 08:33 BP 118/70 01/18/24 08:33 Pulse Ox 98 01/18/24 08:33 BMI result Body Mass Index 24.2 Const General: no acute distress Orientation/consciousness: patient oriented x3 Eyes Eyes/upper lids images: 1. Positive conjunctival injection, clear to cloudy discharge, MARTY, EOMI Resp Effort & Inspection: normal respiratory effort and able to speak in complete sentences Neuro General: patient oriented x3 Psych Mental Status: mental status grossly normal Assessment & Plan Assessment & Plan (1) Acute conjunctivitis of left eye: Code(s): H10.32 - Unspecified acute conjunctivitis, left eye Qualifiers: Acute conjunctivitis type: unspecified Qualified Code(s): H10.32 - Unspecified acute conjunctivitis, left eye Plan Patient is a 58-year-old female came in today to be evaluated for redness in her left eye Which started 2 days ago, patient felt itchy in her eye and she dropped it After that redness got worse and started weeping Mostly medial corner of left eye Vision is intact, there is no pain with the movement of eyeball There is no fever no chills On examination her eye exam is normal except for conjunctival injection mostly medial aspect There is some clear fluid as well I have sent Polytrim eyedrops Patient was notified that if I does not improve within 24-48 hours she need to see an eye doctor Medications: New polymyxin B sulf-trimethoprim 10,000 unit- 1 mg/mL while awake; do not exceed 6 doses in 24 hours 1 drp ophthalmic (eye) QID 10 mL 0RF 7 days Coding Level of Care Code Est Pt Level 3 (21380) Diagnoses Acute conjunctivitis of left eye, unspecified acute conjunctivitis type H10.32 Acute conjunctivitis type: unspecified
[2024-01-18 08:33] VITALS: BP 118/70; PULSE 97; TEMP 36.6; O2SAT 98; BMI 24.2
== END 2024-01-18 08:54 | disposition home or self-care (01) ==
PROVIDERS: PCP Internal Medicine; Visit Provider Internal Medicine
DX: H10.32 Unspecified acute conjunctivitis, left eye (principal)

== ENCOUNTER → 2024-01-18 08:27 | Outpatient (BNVA) | payer BC, SELFPAY | PROVIDERS: PCP Internal Medicine; Visit Provider Internal Medicine ==

== ENCOUNTER 2024-05-09 06:56 | Outpatient (REF) | payer BC, SELFPAY ==
[2024-05-09 07:16] LABS: MANUAL DIFF FLAG NO
[2024-05-09 07:48] LABS: Basophils Percent Auto 0.6 % (0-2); Eosinophils Absolute Auto 0.1 X10*3/uL (0.0-0.4); Eosinophils Percent Auto 1.7 % (0-4); Hematocrit 39.9 % (37.0-47.0); Hemoglobin 13.9 g/dl (12.0-16.0); Imm Gran Abs Auto 0.01 X10*3/uL (0.00-0.03); Imm Gran Pct Auto 0.2 % (0.0-0.4); Lymphocytes Absolute Auto 1.3 X10*3/uL (1.2-4.9); Lymphocytes Percent Auto 26.8 % (20-40); Mean Corpuscular HGB Conc 34.8 g/dl (31.0-35.0); Mean Corpuscular Hemoglobin 31.7 pg (27.0-33.0); Mean Corpuscular Volume 91.1 fL (80.0-98.0); Mean Platelet Volume 8.6 fL (9.4-12.3); Monocytes Absolute Auto 0.5 X10*3/uL (0.1-1.2); Monocytes Percent Auto 10.9 % (2-11); Neutrophils Absolute Auto 2.8 x10*3/uL (2.0-8.3); Neutrophils Percent Auto 59.8 % (45-73); Platelet Count 351 X10*3/uL (160-400); Red Blood Count 4.38 X10*6/uL (4.20-5.50); Red Cell Distribution Width 12.8 % (11.0-16.0); White Blood Count 4.7 X10*3/uL (4.8-10.8)
[2024-05-09 08:07] LABS: Alanine Aminotransferase 11 U/L (0-31); Albumin Level 4.3 g/dL (3.5-5.0); Alkaline Phosphatase 63 U/L (39-117); Anion Gap 14 (12-20); Aspartate Amino Transferase 23 U/L (5-31); Bilirubin Total 0.6 mg/dL (0.0-1.0); Blood Urea Nitrogen 8 mg/dL (9-16); C Reactive Protein 0.16 mg/dL (< or = 0.50); Calcium 9.6 mg/dL (8.4-10.2); Carbon Dioxide 26 mmol/L (22-29); Chloride 101 mmol/L (96-108); Estimated Glomerular Filt Rate > 60; Glucose Random 86 mg/dL (60-115); Potassium 3.8 mmol/L (3.3-5.1); Sodium 137 mmol/L (135-145); Total Protein 7.6 g/dL (6.5-8.0)
[2024-05-09 08:24] LABS: Erythrocyte Sedimentation Rate 6 MM/HR (0-20)
[2024-05-09 08:32] LABS: HBc Num1 0.11 S/CO (0.00-0.79); HBsAGNum1 0.38 S/CO (0.00-0.99); Hepatitis A Antibody IgM 0.24 Index (0-0.79); Hepatitis B Core Antibody Nonreactive (Nonreactive); Hepatitis B Surface Antigen Negative (Negative); ~HepC Num1 0.12 S/CO (0.00-0.79); ~Hepatitis A Antibody IgM Nonreactive (Nonreactive); ~Hepatitis B Surface Antibody NONREACTIVE (Nonreactive); ~Hepatitis C Antibody Nonreactive (Nonreactive)
== END 2024-05-09 06:57 | disposition home or self-care (01) ==
LOC: HO.LAB 06:56
PROVIDERS: PCP Internal Medicine; Visit Provider Student in an Organized Health Care Education/Training Program
DX: L40.50 Arthropathic psoriasis, unspecified (principal); Z79.899 Other long term (current) drug therapy
CPT/HCPCS: 36415; 80053; 85025; 85652; 86140; 86704; 86706; 86709; 86803; 87340

== ENCOUNTER 2024-05-13 07:26 | Outpatient (AMB) | payer BC, SELFPAY ==
--- NOTE | 2024-05-13 07:34 | A.OFFVIS_ITS ---
Vital Signs 05/13/24 07:39 Height 5 ft 6 in Weight 152 lb 1.903 oz BMI 24.5 BP 112/70 Blood Pressure Location Rt brachial Position Sitting Pulse 97 Pulse Source Pulse Oximeter Pulse Oximetry (%) 98 Oxygen Delivery Method Room Air Intake Visit Reasons: PsA and Ps Intake Note: Patient presents for PsA and Ps. Allergies No Known Allergies Allergy (Verified 05/13/24 07:37) Medication List - Last Reconciled 05/13/24 by Jillian Flowers MD alprazolam 0.5 mg PO BEDTIME PRN doxycycline hyclate 20 mg PO BID folic acid 1 mg PO DAILY ibuprofen 600 mg PO Q8H PRN methotrexate sodium 15 mg (6 x 2.5 mg) PO QWEEK 90 days triamterene-hydrochlorothiazid 37.5-25 mg 1 tab PO QAM HPI Comments Details: Patient is a 58-year-old female with bilateral hip OA status post right hip replacement 2022, psoriasis and psoriatic arthritis here for follow-up. Interval History: Patient last seen 01/09/24 with me. At that time patient was stable. No changes made to medication. 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 Found to have squamous cell carcinoma 02/2024 now status post resection. Currently undergoing surveillance with Dermatology. Today, Patient is overall doing well. Intermittently has right wrist pain. But this is self limited. No other complaints Denies dactylitis, prolonged morning stiffness, eye inflammation or redness. Rheumatology History: Patient 1st started having symptoms in the fall of 2019 but was finally diagnosed with psoriatic arthritis and psoriasis in the spring of 2022. Started on 4 pills of methotrexate however had persistent symptoms and was increased to 6 pills of methotrexate 03/2023 Medication History: Methotrexate 15mg (6 pills) weekly Folic Acid 1mg Ibuprofen 600 mg p.r.n. [facility] Medical History Psoriasis Vitamin D deficiency Long-term use of immunosuppressant medication History of squamous cell carcinoma of skin Vitamin deficiency FUNMI positive Essential (primary) hypertension Anxiety disorder, unspecified Surgical History History of colonoscopy (~11/13/19) History of total right hip replacement Family History Son No problems noted. Son No problems noted. Father Substance use disorder Social History Housing: House Alcohol intake: current Alcohol intake frequency: a few times a week Patient Tobacco Use Status: Never used Tobacco e-Cigarette/Vaping Use: Never Used Second Hand Smoke Exposure: No service: No Current occupational status: employed Current occupational exposures/hazards: No Cognitive needs: No Hearing needs: No Vision needs: Yes (contact/Reading glasses) Review of Systems Const Details: Review of Systems Constitutional: Denies fever, chills, weight loss ENT: Denies vision changes, eye pain or eye redness, dental caries, dry mouth GI: Denies nausea, vomiting, diarrhea, abdominal pain, change in BM Pulm: Denies SOB, GUSMNA, hemoptysis, wheezing Cards: Denies chest pain, palpitations Skin: Denies Raynaud's, nail changes, photosensitivity, 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 Well appearing and in no apparent painful distress HEENT Conjunctiva and sclera clear. ?Pupils equal round and reactive to light. ?No lymphadenopathy. ? CHEST/RESPIRATORY SYSTEM Normal respiratory effort and able to speak in complete sentences. ?Clear to auscultation bilaterally. ?No crackles, rales, rhonchi, wheezes heard. CARDIAC SYSTEM Regular rate and rhythm. ?S1 and S2 heard no murmurs. ?Radial pulses intact bilaterally MSK Hands: ?Good film reproducer strength bilaterally. No deformities noted. ?No synovitis noted to the MCPs, PIPs or DIPs. ?No tenderness to palpation of these joints. Wrists: ?Full range of motion at the wrists without pain. ?No tenderness to palpation or synovitis noted to the wrists. Elbows: Full range of motion without pain. No tenderness, weakness, swelling, increased warmth or erythema. Shoulders: Full range of motion without pain. No tenderness, weakness, swelling, increased warmth or erythema. Hips: Full range of motion without pain. Hip bursa: No tenderness to palpation Knees: ?Full range of motion. ?No tenderness, swelling, increased warmth or erythema.?No effusion or crepitations Ankles: Full range of motion. ?No tenderness, swelling, increased warmth or erythema.? Feet: ?Negative squeeze test. ?No tenderness to palpation or swelling of the MTPs. Tender points:?No tenderness to palpation of the bilateral trapezius, supraspinatus, greater trochanters, anterior costochondral junctions, bilateral gluteal areas, bilateral suboccipital muscle insertions SKIN Surgical scar noted to the dorsum of the left hand. Dorsum of the right hand with small scaly papules Results Reviewed Results Reviewed: Laboratory Tests 09/14/23 05/09/24 07:56 07:07 WBC 4.7 L RBC 4.38 Hgb 13.9 Hct 39.9 Plt Count 351 ESR 6 Sodium 137 Potassium 3.8 Chloride 101 Carbon Dioxide 26 BUN 8 L Creatinine 0.71 Total Bilirubin 0.6 AST 23 ALT 11 Alkaline Phosphatase 63 C-Reactive Protein 0.25 0.16 Hepatitis A IgM Ab Nonreactive Hep Bs Antigen Negative Hep Bs Antibody NONREACTIVE Hep B Core Total Ab Nonreactive Hepatitis C Ab (EIA) Nonreactive Assessment & Plan Assessment & Plan (1) Psoriatic arthritis: Comment: Onset 2019. methotrexate started 06/2020 Code(s): L40.50 - Arthropathic psoriasis, unspecified Category: Medical Plan: #Psoriatic Arthritis Patient with the psoriatic arthritis disease well controlled on methotrexate 15 mg weekly. No side effects of the methotrexate and is doing well on 1 mg folic acid daily supplementation. Plan - Methotrexate 15mg weekly - Folic acid 1mg daily - RTC 4 months - Labs before visit: CBC, CMP, ESR, CRP (2) Osteoarthritis of right hip: Code(s): M16.11 - Unilateral primary osteoarthritis, right hip Category: Medical Qualifiers: Osteoarthritis type: primary Qualified Code(s): M16.11 - Unilateral primary osteoarthritis, right hip Plan: #Osteoarthritis Right Hip Patient will osteoarthritis of her right hip as per review of x-rays done in 2021. Recommended exercise and can use Tylenol as needed. Also informed her that we can do steroid injections of the hip if needed. Plan - Ibuprofen 600mg tid prn for pain (3) Encounter for methotrexate monitoring: Code(s): Z51.81 - Encounter for therapeutic drug level monitoring; Z79.631 - group home (current) use of antimetabolite agent Category: Medical Plan: #Long-term Current Use of Methotrexate Discussed with patient the benefits and risks of methotrexate for managing their rheumatic condition Benefits include reduced pain, reduced mortality, maintenance of remission and reduction of flares Risks include oral ulcers, photosensitivity, hepatotoxicity, hematologic toxicity, pneumonitis, flu-like symptoms (especially day after administration), nodulosis, lymphomas ? Limit alcohol and avoid Bactrim ? Monitoring: ?CBC, BMP, LFTs every 3-4 months and hepatitis serologies as needed Plan I spent 30 minutes reviewing the record and labs, seeing the patient, discussing the treatment plan and documenting in the medical record Orders: Orders Complete Blood Count Auto Diff 4 Months L40.50 - Arthropathic psoriasis, unspecified, Z51.81 - Encounter for therapeutic drug level monitoring, Z79.631 - group home (current) use of antimetabolite agent Comprehensive Met. Panel 4 Months L40.50 - Arthropathic psoriasis, unspecified, Z51.81 - Encounter for therapeutic drug level monitoring, Z79.631 - group home (current) use of antimetabolite agent C Reactive Protein 4 Months L40.50 - Arthropathic psoriasis, unspecified, Z51.81 - Encounter for therapeutic drug level monitoring, Z79.631 - manager intermediate (current) use of antimetabolite agent Erythrocyte Sedimentation Rate 4 Months L40.50 - Arthropathic psoriasis, unspecified, Z51.81 - Encounter for therapeutic drug level monitoring, Z79.631 - manager intermediate (current) use of antimetabolite agent Medications: New doxycycline hyclate 20 mg PO BID PRN Rosacea Refilled ibuprofen 600 mg PO Q8H PRN 60 tabs 1RF pain L40.50 - Arthropathic psoriasis, unspecified folic acid 1 mg PO DAILY 90 tabs 1RF L40.50 - Arthropathic psoriasis, unspecified Coding Level of Care Code Est Pt Level 4 (20995) Complex EM visit Add On G2211 Diagnoses Psoriatic arthritis L40.50 Primary osteoarthritis of right hip M16.11 Osteoarthritis type: primary Encounter for methotrexate monitoring Z51.81; Z79.631
[2024-05-13 07:39] VITALS: BP 112/70; PULSE 97; O2SAT 98; BMI 24.5
== END 2024-05-13 07:52 | disposition home or self-care (01) ==
PROVIDERS: PCP Internal Medicine; Visit Provider Student in an Organized Health Care Education/Training Program
DX: L40.50 Arthropathic psoriasis, unspecified (principal); M16.11 Unilateral primary osteoarthritis, right hip; Z51.81 Encounter for therapeutic drug level monitoring; Z79.631 Long term (current) use of antimetabolite agent
CPT/HCPCS: 99214

== ENCOUNTER → 2024-05-13 07:26 | Outpatient (BNVA) | payer BC, SELFPAY | PROVIDERS: PCP Internal Medicine; Visit Provider Student in an Organized Health Care Education/Training Program ==

== ENCOUNTER 2024-06-25 15:51 | Outpatient (REF) | payer BC, SELFPAY | END 2024-06-25 15:52 | disposition home or self-care (01) | LOC: HO.MAMMO 15:51 | PROVIDERS: Visit Provider Internal Medicine | DX: Z12.31 Encounter for screening mammogram for malignant neoplasm of breast (principal) | CPT/HCPCS: 77063; 77067 ==

== ENCOUNTER → 2024-06-25 16:00 | Outpatient (BNV) | payer BC, SELFPAY | PROVIDERS: Visit Provider Internal Medicine | DX: Z12.31 Encounter for screening mammogram for malignant neoplasm of breast (principal) | CPT/HCPCS: 77063; 77067 ==

== ENCOUNTER 2024-07-31 08:53 | Outpatient (AMB) | payer BC, SELFPAY ==
--- NOTE | 2024-07-31 09:00 | A.OFFPC_ITS ---
Vital Signs 07/31/24 09:02 Height 5 ft 6 in Weight 148 lb 6 oz BMI 23.9 BP 120/60 Blood Pressure Location Lt brachial Position Sitting Pulse 83 Pulse Source Pulse Oximeter Temp 97.3 F Temp Source Temporal Artery Scan Pulse Oximetry (%) 99 Oxygen Delivery Method Room Air Intake Visit Reasons: 6 month follow up Intake Note: Patient is here to follow up on Psoriasis, htn. 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: Not Required per policy Accompanied by: Self / Same As Patient Allergies No Known Allergies Allergy (Verified 07/31/24 09:09) Medication List - Last Reconciled 07/31/24 by Lina Mccain PA-C alprazolam 0.5 mg PO BEDTIME PRN doxycycline hyclate 20 mg PO BID PRN fluorouracil 5% 1 appl topical BID folic acid 1 mg PO DAILY ibuprofen 600 mg PO Q8H PRN methotrexate sodium 15 mg (6 x 2.5 mg) PO QWEEK 90 days triamterene-hydrochlorothiazid 37.5-25 mg 1 tab PO QAM Tobacco use date assessed: 07/31/24 Dental Screening Dental Screen Date: 07/31/24 Did you have a dental visit in the last 12 months?: Yes Did you have a dental problem in the last 6 months where you did not have access to dental care?: No Was dental information given to patient?: Patient has dentist HPI 6 month follow up HPI Details The patient is a 58-year-old female presenting with a six-month follow- up for multiple chronic conditions including hypertension and psoriasis. Her hypertension management includes a water pill and remains stable. Psoriasis is managed with methotrexate, dosing six pills weekly, with adjunct topical treatme nt recently completed. The patient attends dermatology appointments bi-annually. For the mammogram, an asymmetric density finding is now subject to further investigation with a follow-up mammogram set for next week. The discovery of previous mammographic density has been noted, particularly affecting the left breast. The patient also requires a timely colonoscopy scheduled for November. Initially set for five years post the last examination, new information places the interval at three years. This scheduling discrepancy needs addressal due to her insurance's need for referral-based appointments. Her rosacea treatment has recently seen increased usage of doxycycline due to aggravated symptoms. She is under dermatological care to monitor and manage this condition effectively. 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 [facility] Medical History (Updated 07/31/24 @ 10:22 by Lina Mccain PA-C) Colon cancer screening Abnormal mammogram Rosacea History of Papanicolaou smear of cervix (~11/15/21) History of mammogram (~06/25/24) Encounter for methotrexate monitoring Psoriasis Vitamin D deficiency History of squamous cell carcinoma of skin Vitamin deficiency FUNMI positive Essential (primary) hypertension Anxiety disorder, unspecified Surgical History History of colonoscopy (~11/13/19) History of total right hip replacement Family History Son No problems noted. Son No problems noted. Father Substance use disorder Social History Housing: House Alcohol intake: current Alcohol intake frequency: a few times a week Patient Tobacco Use Status: Never used Tobacco e-Cigarette/Vaping Use: Never Used Second Hand Smoke Exposure: No service: No Current occupational status: employed Current occupational exposures/hazards: No Cognitive needs: No Hearing needs: No Vision needs: Yes (contact/Reading glasses) Questionnaire PHQ-9 Over the last 2 weeks, how often have you been bothered by any of the following problems? 1. Little interest or pleasure in doing things: not at all 2. Feeling down, depressed, or hopeless: not at all 3. Trouble falling or staying asleep, or sleeping too much: not at all 4. Feeling tired or having little energy: not at all 5. Poor appetite or overeating: not at all 6. Feeling bad about yourself - or that you are a failure or have let yourself or your family down: not at all 7. Trouble concentrating on things, such as reading the newspaper or watching television: not at all 8. Moving or speaking so slowly that other people could have noticed. Or the opposite - being so fidgety or restless that you have been moving around a lot more than usual: not at all 9. Thoughts that you would be better off or of hurting yourself in some way: not at all Total score: 0 Depression Screening Interpretation: Negative Depression Screening Done: Yes 34080 - PHQ-9 Billing: Yes Source: Developed by Drs. Osmany Sung, Carie Araiza, Kan Quijano and colleagues, with an educational jessica from [employer]. Thrive Questionnaire Date Thrive assessed: 07/31/24 I am a: Patient What is your living situation today?: I have a steady place to live Within the past 12 months, did the food you bought not last and you didn't have the money to get more?: Never true Within the past 12 months, did you worry whether your food would run out before you got money to buy more?: Never true Do you have trouble paying for medicines?: No Do you have trouble getting transportation to medical appointments?: No Do you have trouble paying your heating and electricity bill?: No Do you have trouble taking care of your child, family member or friend?: No Do you have trouble with day-to-day activities such as bathing, preparing meals, shopping, managing finances, etc.?: No Are you currently unemployed and looking for a job?: No Are you interested in more education?: No Please select the resources that you would like help with: None Currently or been in a relationship where the following occur: No concerns reported THRIVE Score: 0 AUDIT C Alcohol Use Questionnaire (AUDIT-C) 2. How many drinks containing alcohol do you have on a typical day when you are drinking?: 1 or 2 3. How often do you have six or more drinks on one occasion?: Less than monthly Total Score: 1 Score Reviewed/Action Taken: No CHIP-7 AMB Questionnaire CHIP-7 Date CHIP - 7 assessed: 07/31/24 Feeling nervous, anxious, or on edge: 2 = More than half the days Not being able to stop or control worryin = Several days Worrying too much about different things: 1 = Several days Trouble relaxin = Several days Being so restless that it is hard to sit still: 1 = Several days Becoming easily annoyed or irritable: 1 = Several days Feeling afraid as if something awful might happen: 0 = Not at all Total CHIP-7 score (0-4 normal; 5-9 mild; 10-14 moderate; 15-21 severe): 7 Source: Developed by Carie Mcgraw Kurt Kroenke and colleagues, with an educational jessica from [employer]. 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 - Exercise/Activity: No specific exercise regimen discussed. - Family status: Not explicitly mentioned. - Housing: Not explicitly mentioned. - Substance use: Not discussed. - Nutrition/Weight management: Not discussed. Physical exam (Primary Care) Vital Signs: Last Vital Signs Temp 97.3 F 07/31/24 09:02 Pulse 83 07/31/24 09:02 BP 120/60 07/31/24 09:02 Pulse Ox 99 07/31/24 09:02 Oxygen Delivery Method Room Air 07/31/24 09:02 Care Plan Goal for BP management: <130/90 at Goal BMI result Body Mass Index 23.9 normal bmi Tobacco/Smoking Status: Tobacco use Status Tobacco use date assessed 07/31/24 07/31/24 09:07 Patient Tobacco Use Status Never used Tobacco 07/31/24 09:07 e-Cigarette/Vaping Use Never Used 07/31/24 09:07 PHQ-9: PHQ-9 Score PHQ-9: Total score 0 07/31/24 09:07 Depression Screening Interpretation: Negative Thrive Assessment: Date of Thrive Assessment Date Thrive assessed 07/31/24 07/31/24 09:07 Currently or been in a relationship where the following occur: No concerns reported Const Other: Appearance: Alert. Oriented X3. No acute distress. Head: Normal external exam. Normocephalic. Atraumatic. Eyes: Pupils are equal, round, and reactive to light. Extraocular movements intact. Conjunctiva and sclera normal. Eyelids normal. Ears: External auditory canal normal. Tympanic membranes normal. Throat: Pharynx normal. Uvula midline. Moist mucous membranes. Neck: Normal inspection. Neck supple. Full range of motion. No adenopathy. Thyroid Normal. No meningeal signs. No neck mass noted. Cardiovascular: Normal heart rate and rhythm. Heart sound normal. No murmurs noted. Pulses normal throughout. Respiratory: No respiratory distress. Painless inspiration. Breath sounds normal. No wheezes/rales/rhonchi noted. Chest nontender. No accessory muscle usage noted or decreased air movement noted. Abdomen: Soft and nontender. Bowel sounds normal in all 4 quadrants. No distention noted. No organomegaly noted. No visible injury noted. Back: No costovertebral angle tenderness. Full range of motion noted. Skin: Skin warm and dry. Normal skin color. Normal skin turgor. Psoriasis rash and rosacea to face no signs of infection. No additional lesions/lacerations noted. Extremities: No lower extremity edema. Extremities exhibit normal range of motion. Extremities nontender. Neuro: Oriented X 3. No motor deficit. No sensory deficit. Reflexes normal. Results Reviewed Results Reviewed: - Labs: Planned cholesterol levels due to last testing in 2021. - Tests: Mammogram pending review for breast density. - Diagnostics: Colonoscopy scheduling pending as per insurance agreement. Coding Level of Care Code Est Pt Level 4 (49446) Complex EM visit Add On G2211 Diagnoses Follow-up exam, 3-6 months since previous exam Z09 Generalized anxiety disorder F41.1 Anxiety disorder type: generalized anxiety disorder Psoriatic arthritis L40.50 Essential (primary) hypertension I10 History of squamous cell carcinoma of skin Z85.828 Psoriasis L40.9 Rosacea L71.9 Abnormal mammogram R92.8 Colon cancer screening Z12.11 Additional Codes PHQ-9 - 89519 - PHQ-9 Billing: Yes ([id number]) CHIP-7 Assessment Billing - CHIP-7 Assessment Tool: CHIP-7 Assessment 89067 ([id number]) Assessment & Plan Assessment & Plan (1) Follow-up exam, 3-6 months since previous exam: Code(s): Z09 - Encounter for follow-up examination after completed treatment for conditions other than malignant neoplasm (2) Anxiety disorder, unspecified: Code(s): F41.9 - Anxiety disorder, unspecified Category: Medical Qualifiers: Anxiety disorder type: generalized anxiety disorder Qualified Code(s): F41.1 - Generalized anxiety disorder Plan: Patient to continue alprazolam 0.5 mg p.r.n. at bedtime. Condition is chronic and stable continue to monitor. (3) Psoriatic arthritis: Comment: Onset 2019. methotrexate started 06/2020 Code(s): L40.50 - Arthropathic psoriasis, unspecified Category: Medical Plan: Patient to continue methotrexate 15 mg p.o. weekly as prescribed. Condition is chronic and stable continue to monitor. (4) Essential (primary) hypertension: Code(s): I10 - Essential (primary) hypertension Category: Medical Plan: Continue current antihypertensive regimen of Traiamterene-hydrochlorothiazid 37.5-25 mg daily with regular monitoring. Condition is chronic and stable will continue to monitor. (5) History of squamous cell carcinoma of skin: Code(s): Z85.828 - Personal history of other malignant neoplasm of skin Category: Medical Plan: Patient to continue being followed by Dermatology. Condition is chronic and stable continue to monitor. (6) Psoriasis: Code(s): L40.9 - Psoriasis, unspecified Category: Medical Plan: Patient to continue being followed by Dermatology and methotrexate along with Fluorouracil 5% topical b.i.d. as prescribed by dermatology. Condition is chronic and stable continue to monitor. (7) Rosacea: Code(s): L71.9 - Rosacea, unspecified Category: Medical Plan: Continue doxycycline on an as-needed basis, regular dermatology follow-up advised. Condition is chronic and stable continue to monitor. (8) Abnormal mammogram: Code(s): R92.8 - Other abnormal and inconclusive findings on diagnostic imaging of breast Category: Medical Plan: Monitor results of follow-up mammogram to evaluate asymmetric density. Will continue to monitor. (9) Colon cancer screening: Code(s): Z12.11 - Encounter for screening for malignant neoplasm of colon Category: Medical Plan: Patient's last colonoscopy was November of 2019. She is due for repeat in 5 years. Will send GI referral. Will continue to monitor. Plan Plan Patient was informed and verbally consented to the use of an ambient scribe for clinic note documentation during this visit. 1. Essential Hypertension Continue current antihypertensive regimen with regular monitoring. 2. Psoriasis Continue methotrexate therapy and follow dermatology recommendations. 3. Mammographic Breast Density Monitor results of follow-up mammogram to evaluate asymmetric density. 4. Psoriatic Arthritis Continue with current methotrexate. Symptom monitoring advised. 5. Rosacea Continue doxycycline on an as-needed basis, regular dermatology follow-up advised. 6. Squamous Cell Carcinoma, Excised Continued monitoring for recurrence is in place after previous excision. During our visit, we discussed the ongoing management of the patient's hypertension and psoriasis. I confirmed the need for a follow-up mammogram due to noted asymmetry in breast density and advised the follow-up scheduled will p rovide necessary insight into further management. For her gastrointestinal consult, we clarified the need for the earlier scheduling of her colonoscopy due to a prior discrepancy. This will be set in tandem with her insurance provisions. We discussed treatment efficacy regarding her rosacea, presently managed with doxycycline, and her controlled squash cell carcinoma status post-excision. 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 Instructions stipulated continued medication adherence and proactive symptom monitoring with all chronic conditions under her care. Orders: Orders Erythrocyte Sedimentation Rate Today Z00.00 - Encounter for general adult medical examination without abnormal findings C Reactive Protein Today Z00.00 - Encounter for general adult medical examination without abnormal findings TSH reflex Free T4 Today Z00.00 - Encounter for general adult medical examination without abnormal findings Vitamin B12 and Folate Today Z00.00 - Encounter for general adult medical examination without abnormal findings Vitamin D 25-OH Total Today Z00.00 - Encounter for general adult medical examination without abnormal findings Complete Blood Count Auto Diff Today Z00.00 - Encounter for general adult medical examination without abnormal findings Comprehensive [place]. Panel Fast Today Z00.00 - Encounter for general adult medical examination without abnormal findings Hemoglobin A1c Today Z00.00 - Encounter for general adult medical examination without abnormal findings Lipid Panel Today Z00.00 - Encounter for general adult medical examination without abnormal findings Liver Panel Today Z00.00 - Encounter for general adult medical examination without abnormal findings Magnesium Today Z00.00 - Encounter for general adult medical examination without abnormal findings Referrals Gastroenterology Referral Z12.11 - Encounter for screening for malignant neoplasm of colon Medications: Refilled alprazolam 0.5 mg PO BEDTIME PRN 30 tabs 0RF sleep Patient Instructions: - Continue taking your medications as prescribed. - Follow up for your mammogram next . - Keep an eye out for calls regarding the scheduling of your colonoscopy. - Attend dermatology and rheumatology appointments as scheduled. - Regular blood pressure monitoring is encouraged. - Report any worsening of symptoms to my office. - Obtain fasting blood work prior to your next appointment.
[2024-07-31 09:02] VITALS: BP 120/60; PULSE 83; TEMP 36.3; O2SAT 99; BMI 23.9
== END 2024-07-31 09:25 | disposition home or self-care (01) ==
LOC: HO.HMCH 08:54
PROVIDERS: PCP Internal Medicine; Visit Provider Physician Assistant Medical
DX: Z09 Encounter for follow-up examination after completed treatment for conditions other than malignant neoplasm (principal); F41.1 Generalized anxiety disorder; L40.50 Arthropathic psoriasis, unspecified; I10 Essential (primary) hypertension; Z85.828 Personal history of other malignant neoplasm of skin; L40.9 Psoriasis, unspecified; L71.9 Rosacea, unspecified; R92.8 Other abnormal and inconclusive findings on diagnostic imaging of breast; Z12.11 Encounter for screening for malignant neoplasm of colon

== ENCOUNTER → 2024-07-31 08:53 | Outpatient (BNVA) | payer BC, SELFPAY | PROVIDERS: PCP Internal Medicine; Visit Provider Physician Assistant Medical | DX: I10 Essential (primary) hypertension (principal); F41.1 Generalized anxiety disorder; L40.50 Arthropathic psoriasis, unspecified; L40.9 Psoriasis, unspecified; L71.9 Rosacea, unspecified; R92.8 Other abnormal and inconclusive findings on diagnostic imaging of breast; Z85.828 Personal history of other malignant neoplasm of skin; Z79.631 Long term (current) use of antimetabolite agent; Z79.899 Other long term (current) drug therapy | CPT/HCPCS: 96127 ==

== ENCOUNTER 2024-08-07 13:15 | Outpatient (REF) | payer BC, SELFPAY ==
--- NOTE | ~2024-08-07 | MM_ITS ---
EXAMINATION: MM DIAGNOSTIC DIGITAL BREAST TOMOSYNTHESIS, BILATERAL Bilateral Limited ultrasound. CLINICAL INFORMATION: Call back from screening for bilateral asymmetries. COMPARISON: Mammography: Comparison is made with relevant prior exams. TECHNIQUE: Digital breast mammography with tomosynthesis is performed in both the craniocaudal and mediolateral oblique views along with computer-aided detection (CAD). FINDINGS: The breasts are heterogeneously dense, which may obscure small masses (ACR BI-RADS breast composition Category c). Left: Circumscribed oval mass is new and persist on additional imaging projections. Marker clip from previous benign needle core biopsy. No suspicious calcifications masses or other abnormal findings. Targeted color Doppler ultrasound scanning in the left breast demonstrates a hypoechoic oval circumscribed solid mass versus complicated cyst at 2:00 4 cm from nipple measuring 8 x 10 x 5 mm which correlates with the oval mass on mammography. Right: Asymmetry in the right breast partially effaces on additional imaging projections and is only seen on MLO view. Targeted color Doppler ultrasound scanning from 9- 1:00 demonstrates normal fibroglandular breast tissue. There is no sonographic abnormality seen. Results are provided to the patient at time of visit by the technologist. MM/MM tomosynthesis added view BI IMPRESSION: Left: New oval mass which correlates with a probable minimally complicated cyst versus solid mass on ultrasound. Recommend 6 month follow-up ultrasound for further evaluation of stability. Right: Asymmetry without sonographic correlate which partially effaces. Recommend six-month follow-up mammography for further evaluation of stability. ASSESSMENT: BI-RADS BI-RADS 3 - Probably benign finding(s) - 6 month follow-up suggested RECOMMENDATION: 6 Month F/U This patient's information was entered into a reminder system with a target due date for their next mammogram. Electronically signed by: Justina Jaimes DO 08/07/2024 02:43 PM EDT
== END 2024-08-07 13:16 | disposition home or self-care (01) ==
LOC: HO.MAMMO 13:15
PROVIDERS: PCP Internal Medicine; Visit Provider Internal Medicine
DX: N64.89 Other specified disorders of breast (principal)
CPT/HCPCS: 76642; 77062; 77066

== ENCOUNTER → 2024-08-07 13:30 | Outpatient (BNV) | payer BC, SELFPAY | PROVIDERS: PCP Internal Medicine; Visit Provider Internal Medicine | DX: R92.8 Other abnormal and inconclusive findings on diagnostic imaging of breast (principal) | CPT/HCPCS: 76642; 77062; 77066 ==

== ENCOUNTER 2024-08-19 06:42 | Outpatient (REF) | payer BC, SELFPAY ==
[2024-08-19 07:02] LABS: MANUAL DIFF FLAG NO
[2024-08-19 07:08] LABS: Basophils Percent Auto 0.6 % (0-2); Eosinophils Absolute Auto 0.2 X10*3/uL (0.0-0.4); Eosinophils Percent Auto 2.9 % (0-4); Hematocrit 37.9 % (37.0-47.0); Hemoglobin 13.3 g/dl (12.0-16.0); Imm Gran Abs Auto 0.02 X10*3/uL (0.00-0.03); Imm Gran Pct Auto 0.4 % (0.0-0.4); Lymphocytes Absolute Auto 1.5 X10*3/uL (1.2-4.9); Mean Corpuscular HGB Conc 35.1 g/dl (31.0-35.0); Mean Corpuscular Hemoglobin 31.8 pg (27.0-33.0); Mean Corpuscular Volume 90.7 fL (80.0-98.0); Mean Platelet Volume 8.4 fL (9.4-12.3); Monocytes Absolute Auto 0.5 X10*3/uL (0.1-1.2); Monocytes Percent Auto 10.4 % (2-11); Neutrophils Percent Auto 57.7 % (45-73); Platelet Count 298 X10*3/uL (160-400); Red Blood Count 4.18 X10*6/uL (4.20-5.50); Red Cell Distribution Width 12.9 % (11.0-16.0); White Blood Count 5.2 X10*3/uL (4.8-10.8)
[2024-08-19 07:15] LABS: Estimated Average Glucose 97 mg/dL; Hemoglobin A1C 111.6634 umol/L; Total Hemoglobin (HGBA1C) 3526.4496 umol/L
[2024-08-19 07:24] LABS: Alanine Aminotransferase 14 U/L (0-31); Albumin Level 4.1 g/dL (3.5-5.0); Alkaline Phosphatase 64 U/L (39-117); Anion Gap 13 (12-20); Aspartate Amino Transferase 18 U/L (5-31); Bilirubin Direct 0.2 mg/dL (0.0-0.5); Bilirubin Total 0.8 mg/dL (0.0-1.0); Blood Urea Nitrogen 11 mg/dL (9-16); C Reactive Protein 0.54 mg/dL (< or = 0.50); Carbon Dioxide 28 mmol/L (22-29); Chloride 99 mmol/L (96-108); Cholesterol 186 mg/dL (<200); Estimated Glomerular Filt Rate > 60; Glucose Fasting 87 mg/dL (60-99); Glucose Random 87 mg/dL (60-115); HDL Cholesterol 62 mg/dL (>40); LDL Cholesterol Calculated 108 mg/dL (<100); Magnesium 2.1 mg/dL (1.6-2.6); Potassium 3.5 mmol/L (3.3-5.1); Sodium 136 mmol/L (135-145); Total Protein 6.9 g/dL (6.5-8.0); Triglycerides 84 mg/dL (<150)
[2024-08-19 07:27] LABS: C Reactive Protein 0.53 mg/dL (< or = 0.50)
[2024-08-19 07:46] LABS: TSH reflex Free T4 2.62 uIU/mL (0.32-4.0); Vitamin D 25-OH Total 31.2 ng/mL (>30)
[2024-08-19 08:13] LABS: Folate > 20.0 ng/mL (> or = 4.0); Vitamin B12 311 pg/mL (200-900)
[2024-08-19 08:28] LABS: Erythrocyte Sedimentation Rate 7 MM/HR (0-20)
[2024-08-19 13:55] LABS: Erythrocyte Sedimentation Rate 7 MM/HR (0-20)
== END 2024-08-19 06:43 | disposition home or self-care (01) ==
LOC: HO.LAB 06:42
PROVIDERS: Absent Provider Student in an Organized Health Care Education/Training Program; PCP Internal Medicine; Visit Provider Physician Assistant Medical
DX: Z00.00 Encounter for general adult medical examination without abnormal findings (principal); L40.50 Arthropathic psoriasis, unspecified; Z51.81 Encounter for therapeutic drug level monitoring; Z79.631 Long term (current) use of antimetabolite agent; Z13.1 Encounter for screening for diabetes mellitus
CPT/HCPCS: 36415; 80053; 80061; 82248; 82306; 82607; 82746; 83036; 83735; 84443; 85025; 85652; 86140

== ENCOUNTER 2024-10-14 07:41 | Outpatient (AMB) | payer BC, SELFPAY ==
--- NOTE | 2024-10-14 07:43 | A.OFFVIS_ITS ---
Vital Signs 10/14/24 07:47 Height 5 ft 6 in Weight 149 lb 4.047 oz BMI 24.1 BP 115/70 Blood Pressure Location Lt brachial Position Sitting Pulse 9 L Pulse Source Pulse Oximeter Pulse Oximetry (%) 99 Oxygen Delivery Method Room Air Intake Visit Reasons: PsA and Ps Intake Note: Patient presents for PsA an Ps follow up. 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 Interval History: Patient last seen 05/14/24 with me. - Doing well overall - Intermittent right wrist pain, self limited - No changes to medications - Hip OA: prn ibuprofen Today, - Doing well today - Still with some right wrist pain that sometimes involves the left wrist - Has started bike riding Denies dactylitis, prolonged morning stiffness, eye inflammation or redness. Rheumatology History: Patient 1st started having symptoms in the fall of 2019 but was finally diagnosed with psoriatic arthritis and psoriasis in the spring of 2022. Started on 4 pills of methotrexate however had persistent symptoms and was increased to 6 pills of methotrexate 03/2023 Medication History: Methotrexate 15mg (6 pills) weekly Folic Acid 1mg Ibuprofen 600 mg p.r.n. [facility] Medical History (Updated 07/31/24 @ 10:22 by Lina Mccain PA-C) Colon cancer screening Abnormal mammogram Rosacea History of Papanicolaou smear of cervix (~11/15/21) History of mammogram (~06/25/24) Encounter for methotrexate monitoring Psoriasis Vitamin D deficiency History of squamous cell carcinoma of skin Vitamin deficiency FUNMI positive Essential (primary) hypertension Anxiety disorder, unspecified Surgical History History of colonoscopy (~11/13/19) History of total right hip replacement Family History Son No problems noted. Son No problems noted. Father Substance use disorder Social History Housing: House Alcohol intake: current Alcohol intake frequency: a few times a week Patient Tobacco Use Status: Never used Tobacco e-Cigarette/Vaping Use: Never Used Second Hand Smoke Exposure: No service: No Current occupational status: employed Current occupational exposures/hazards: No Cognitive needs: No Hearing needs: No Vision needs: Yes (contact/Reading glasses) Review of Systems Const Details: Review of Systems Constitutional: Denies fever, chills, weight loss ENT: Denies vision changes, eye pain or eye redness, dental caries, dry mouth GI: Denies nausea, vomiting, diarrhea, abdominal pain, change in BM Pulm: Denies SOB, GUSMAN, hemoptysis, wheezing Cards: Denies chest pain, palpitations Skin: Denies Raynaud's, nail changes, photosensitivity, 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 Well appearing and in no apparent painful distress HEENT Conjunctiva and sclera clear. ?Pupils equal round and reactive to light. ?No lymphadenopathy. ? CHEST/RESPIRATORY SYSTEM Normal respiratory effort and able to speak in complete sentences. ?Clear to auscultation bilaterally. ?No crackles, rales, rhonchi, wheezes heard. CARDIAC SYSTEM Regular rate and rhythm. ?S1 and S2 heard no murmurs. 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 No deformities noted. ?No synovitis noted to the MCPs, PIPs or DIPs. ?No tenderness to palpation of these joints. Wrists: ?Full range of motion at the wrists without pain. ?No tenderness to palpation or synovitis noted to the wrists. Elbows: Full range of motion without pain. No tenderness, weakness, swelling, increased warmth or erythema. Shoulders: Full range of motion without pain. No tenderness, weakness, swelling, increased warmth or erythema. Knees: ?Full range of motion. ?No tenderness, swelling, increased warmth or erythema.?No effusion or crepitations Ankles: Full range of motion. ?No tenderness, swelling, increased warmth or erythema.? Feet: Positive squeeze test bilaterally but no actual tenderness to palpation of the MCPs. Tender points:?No tenderness to palpation of the bilateral trapezius, supraspinatus, greater trochanters, anterior costochondral junctions, bilateral gluteal areas, bilateral suboccipital muscle insertions SKIN Surgical scar noted to the dorsum of the left hand. Dorsum of the right hand with small scaly papules some scaling noted to the forehead Results Reviewed Results Reviewed: Laboratory Tests 05/09/24 08/19/24 07:07 06:58 WBC 5.2 RBC 4.18 L Hgb 13.3 Hct 37.9 Plt Count 298 ESR 7 Sodium 136 Potassium 3.5 Chloride 99 Carbon Dioxide 28 BUN 11 Creatinine 0.67 AST 18 ALT 14 C-Reactive Protein 0.16 0.53 H Assessment & Plan Assessment & Plan (1) Psoriatic arthritis: Comment: Onset 2019. methotrexate started 06/2020 Code(s): L40.50 - Arthropathic psoriasis, unspecified Category: Medical Plan: #Psoriatic Arthritis Patient with the psoriatic arthritis disease well controlled on methotrexate 15 mg weekly. I would say patient has about 85% control of her disease. We discussed potentially increasing her medications versus adding another medication and patient says that she is okay at this time with the current level of control that she has, and would prefer to stay on her current medication dosage. No side effects of the methotrexate and is doing well on 1 mg folic acid daily supplementation. Plan - Methotrexate 15mg weekly - Folic acid 1mg daily - Ibuprofen prn - RTC 6 months - Labs before visit: CBC, CMP, ESR, CRP (2) Encounter for methotrexate monitoring: Code(s): Z51.81 - Encounter for therapeutic drug level monitoring; Z79.631 - USP (current) use of antimetabolite agent Category: Medical Plan: #Long-term Current Use of Methotrexate Discussed with patient the benefits and risks of methotrexate for managing their rheumatic condition Benefits include reduced pain, reduced mortality, maintenance of remission and reduction of flares Risks include oral ulcers, photosensitivity, hepatotoxicity, hematologic toxicity, pneumonitis, flu-like symptoms (especially day after administration), nodulosis, lymphomas ? Limit alcohol and avoid Bactrim ? Monitoring: ?CBC, BMP, LFTs every 3-4 months and hepatitis serologies as needed Plan I spent 30 minutes reviewing the record and labs, seeing the patient, discussing the treatment plan and documenting in the medical record Coding Level of Care Code Est Pt Level 4 (88309) Complex EM visit Add On G2211 Diagnoses Psoriatic arthritis L40.50 Encounter for methotrexate monitoring Z51.81; Z79.631
[2024-10-14 07:47] VITALS: BP 115/70; PULSE 9; O2SAT 99; BMI 24.1
== END 2024-10-14 08:28 | disposition home or self-care (01) ==
LOC: HO.RHE 07:41
PROVIDERS: PCP Internal Medicine; Visit Provider Student in an Organized Health Care Education/Training Program
DX: L40.50 Arthropathic psoriasis, unspecified (principal); Z51.81 Encounter for therapeutic drug level monitoring; Z79.631 Long term (current) use of antimetabolite agent
CPT/HCPCS: 99214

== ENCOUNTER 2024-10-22 07:50 | Outpatient (AMB) | payer BC, SELFPAY ==
--- NOTE | 2024-10-22 08:01 | MHC.OFFVIS ---
Vital Signs 10/22/24 08:05 Height 5 ft 6 in Weight 152 lb BMI 24.5 BP 107/69 Blood Pressure Location Lt brachial Position Sitting Pulse 73 Pulse Oximetry (%) 98 Oxygen Delivery Method Room Air Intake Visit Reasons: [place] screening Intake Note: Patient new consult for 2nd pre Colonoscopy screening/Dr. Haemed 2019. Patient denies any GI issues for today. [employer] Required: No Accompanied by: Self / Same As Patient Allergies No Known Allergies Allergy (Verified 10/22/24 07:58) Medication List - Last Reconciled 10/22/24 by Mari Sarmiento CNP alprazolam 0.5 mg PO BEDTIME PRN doxycycline hyclate 20 mg PO BID PRN fluorouracil 5% 1 appl topical BID folic acid 1 mg PO DAILY ibuprofen 600 mg PO Q8H PRN methotrexate sodium 15 mg (6 x 2.5 mg) PO QWEEK 90 days triamterene-hydrochlorothiazid 37.5-25 mg 1 tab PO QAM HPI HPI [place] screening: Details: Patient is a 58-year-old female with PMH of OA, anxiety, psoriasis and hypertension. Referred by PCP for pre colonoscopy screening. Pretty's last colonoscopy was November 2019 with findings of a polyp and recommendations for repeat in 5 years. She reports regular bowel movements nearly every day without significant issues such as constipation or diarrhea. There is no presence of blood in stools, nausea, vomiting, or chronic abdominal pain. Pretty denies experiencing any upper gastrointestinal symptoms like heartburn or swallowing difficulties. She mentions managing occasional anxiety with alprazolam and occasional flares of rosacea with doxycycline. Her psoriasis and psoriatic arthritis are managed with methotrexate weekly, supplemented by folic acid. Pretty states a history of skin cancer with basal cell carcinoma in the past. She denies any other personal CA history. Patient denies: fever/chills, appetite changes, regurgitation, unintentional wt loss, or melena/hematochezia. Social hx: -Consumes alcohol on weekends, typically wine, seltzer, or beer -occasionally tried marijuana edibles, denies other recreational drug use -non-smoker - family hx as below -denies significant cardiopulmonary history -tolerated anesthesia in the past without difficulty. [facility] Medical History (Updated 07/31/24 @ 10:22 by Lina Mccain PA-C) Colon cancer screening Abnormal mammogram Rosacea History of Papanicolaou smear of cervix (~11/15/21) History of mammogram (~06/25/24) Encounter for methotrexate monitoring Psoriasis Vitamin D deficiency History of squamous cell carcinoma of skin Vitamin deficiency FUNMI positive Essential (primary) hypertension Anxiety disorder, unspecified Surgical History History of colonoscopy (~11/13/19) History of total right hip replacement Family History Son No problems noted. Son No problems noted. Father Substance use disorder Social History Housing: House Alcohol intake: current Alcohol intake frequency: a few times a week Patient Tobacco Use Status: Never used Tobacco e-Cigarette/Vaping Use: Never Used Second Hand Smoke Exposure: No service: No Current occupational status: employed Current occupational exposures/hazards: No Cognitive needs: No Hearing needs: No Vision needs: Yes (contact/Reading glasses) Review of Systems Const Reports as per HPI ENT Reports as per HPI Card Reports as per HPI Resp Reports as per HPI GI Reports as per HPI Reports as per HPI Physical Exam Const General: healthy appearing, no acute distress and well developed Nutritional Appearance: well nourished Orientation/consciousness: patient oriented x3 HEENT Head: Yes normal to inspection, Yes normocephalic and Yes atraumatic Face and sinus: Yes normal facial exam Eyes General: appearance normal, both eyes and all related structures Neck Neck: Yes normal visual inspection Resp Effort & Inspection: normal respiratory effort, able to speak in complete sentences, no tracheal deviation and symmetric chest movement Auscultation: clear to auscultation bilaterally Cardio Jugular venous distension: no JVD Rate: regular rate Rhythm: regular rhythm Heart sounds: S1 normal heart sound present, S2 normal heart sound present, no gallops and no murmurs GI Inspection: Yes normal to inspection, No distended and Yes striae Palpation (GI): Soft to palpation, not firm, nontender and No hepatosplenomegaly present Auscultation: normal bowel sounds Neuro General: patient oriented x3 Gait exam (Neuro): Normal gait present Psych Appearance: grossly normal Mental Status: mental status grossly normal Speech and movement: Normal speech and movement present Affect: normal affect Attitude: cooperative Thought process: Normal thought process present Thought content: Normal thought content present Insight: Good insight present (Psych) Judgement: Good judgement present (Psych) Assessment & Plan Assessment & Plan (1) Colon cancer screening: Code(s): Z12.11 - Encounter for screening for malignant neoplasm of colon Category: Medical Plan: Due for polyp surveillance colonoscopy. Medications: -prescriptions for laxative tablets and MiraLax sent to pharmacy; instructions for Gatorade purchase and clear liquid diet given. Patient educated on scheduling process, procedure preparation, including avoiding certain foods and ensuring clear liquid intake Advised on necessity for ride post-procedure due to sedation. Plan Follow-up after colonoscopy or sooner as needed Time: I spent a total of 30 minutes on the date of encounter which includes: Preparing to see the patient (reviewed previous documentation, test results and medical history) Performing a medically appropriate exam and/or evaluation Ordering medications, tests, and procedures Documenting clinical information in the health record Medications: New bisacodyl Take four tablets once for 1 day per colonoscopy instructions 5 mg PO ONCE 4 tabs 0RF 1 day polyethylene glycol 3350 (Miralax) per colonoscopy prep instructions 238 grams PO ONCE 238 grams 0RF Coding Level of Care Code New Pt New Pt Level 3 (19173) Patient Type New Diagnoses Colon cancer screening Z12.11
[2024-10-22 08:05] VITALS: BP 107/69; PULSE 73; O2SAT 98; BMI 24.5
== END 2024-10-22 08:23 | disposition home or self-care (01) ==
LOC: HO.HGI 07:51
PROVIDERS: PCP Internal Medicine; Visit Provider Nurse Practitioner Family
DX: Z01.818 Encounter for other preprocedural examination (principal); Z12.11 Encounter for screening for malignant neoplasm of colon
CPT/HCPCS: S0285

== ENCOUNTER 2025-01-09 08:06 | Day surgery (SDC) | payer BC, SELFPAY ==
--- OUTSIDE RECORDS SUMMARY | 2024-12-17 16:33 | XMS_ITS | Clinical Summary ---
Author Organization [facility] Address [address] [place] [phone] Phone Care Team Providers Care Office Assistance Name Role Phone Pcp, Unknown Primary Care Provider Unavailabl e Medications ALPRAZolam (XANAX) 0.5 MG tablet Take 0.5 mg by mouth nightly at bedtime as needed. 2 Active folic acid (FOLVITE) 1 MG tablet Take 1,000 mcg by mouth daily. 2 Active methotrexate 2.5 MG Oral tablet TAKE 4 TABLETS BY MOUTH EVERY WEEK 2 Active metroNIDAZOLE (METROCREAM) 0.75 % cream APPLY TOPICALLY TO FACE TWICE DAILY FOR ROSACEA 2 Active triamterene-hyd roCHLOROthiazid e (MAXZIDE-25) 37.5-25 mg per tablet Take 1 tablet by mouth every morning. 2 Active Social History Tobacco Use Types Packs/Day Years Used Date Smoking Tobacco: Never Smokeless Tobacco: Never Alcohol Use Standard Drinks/Week Comments Yes 0 (1 standard drink = 0.6 oz pur e alcohol) socially Education Answer Date Recorded Are you interested in more education? Not on cristin e 08/05/2022 Are you concerned about learning? Not on file 08/05/2022 No 08/05/2022 No 08/05/2022 Digital Access Answer Date Recorded No 09/03/2022 No 09/03/2022 No 09/03/2022 Reliable internet access at home? Not on file 09/03/2022 Device with a working camera? Not on file Comments Unknown Sex and Gender Information Value Date Recorded Sex Assigned at Not on file Legal Sex Female 1:26 PM EDT Gender Identity Not on file Sexual Orientation Not on file Last Filed Vital Signs Vital Sign Reading Time Taken Comments Blood Pressure - - Pulse - - Temperature - - Respiratory Rate - - Oxygen Saturation - - Inhaled Oxygen Concentration - - Weight 73.9 kg (163 lb) 11/16/2021 10:16 AM EDT Height 168.3 cm (5' 6.25 ) 11/16/2021 10:16 AM E DT Body Mass Index 26.11 11/16/2021 10:16 AM EDT Plan of Treatment Health Maintenance Due Date Last Done Comments Adult Td,Tdap Booster 1967 LIPID PANEL 1967 POTASSIUM LEVEL 1967 COVID-19 VACCINE (#1) 12/24/1972 DEPRESSION SCREENING 1979 HEPATITIS C SCREENING 12/24/1985 HIV ONE-TIME SCREENING (18-6 5 YEARS) 12/24/1985 PNEUMOCOCCAL VACCINES (50+ y ears) (1 of 2 - PCV) 12/24/1986 ZOSTER VACCINES (1 of 2) 12/24/1986 PAP SMEAR 12/24/1988 MAMMOGRAM 2007 COLOGUARD 12/24/2012 COLONOSCOPY 12/24/2012 COLORECTAL CANCER SCREENING 12/24/2012 FIT TEST 12/24/2012 FOBT 12/24/2012 SIGMOIDOSCOPY 12/24/2012 VIRTUAL COLONOSCOPY 12/24/2012 INFLUENZA VACCINE (#1) 2024 SMOKING STATUS SCREENING (On ce After 26 Yrs) Completed 11/16/2021 HEPATITIS A VACCINES Aged Out No long er eligible based on patient's age to complete this topic HIB VACCINES Aged Out No longer eligi ble based on patient's age to complete this topic MENINGOCOCCAL VACCINES (ACWY) Aged Out No longer eligible based on patient's age to complete this topic MENINGOCOCCAL VACCINES (B) Aged Out N o longer eligible based on patient's age to complete this topic Medical Devices Not on file Insurance [facility] Care Teams Office Assistance Relationship Specialty Start Date End Date Pcp, Unknown PCP - General 10/05/21 Additional Source Comments The information contained in this document represents components of the legal health record. It is not the complete legal health record.[facility]
[2025-01-07 13:32] VITALS: BMI 24.5
--- NOTE | 2025-01-08 08:47 | HO.ANESPROP2 ---
Documented by User: Jenny Shannon NP 01/08/25 08:48 HPI - Anesthesia Eval Consult details Narrative: 59yo F for Colonoscopy Methotrexate weekly for psoriatic arthritis PMF Active Problems Active Problems: All Active Problems Screening for hyperlipidemia (Acute) Osteoarthritis of right hip (Acute) Psoriatic arthritis (Acute) Dyspnea on exertion (Acute) Colon cancer screening (Acute) Abnormal mammogram (Acute) Rosacea (Acute) Encounter for methotrexate monitoring (Acute) Vitamin D deficiency (Acute) Psoriasis (Acute) History of squamous cell carcinoma of skin (Acute) Essential (primary) hypertension (Acute) FUNMI positive (Acute) Anxiety disorder, unspecified (Acute) Past Medical History Medical History (Updated 01/09/25 @ 09:07 by Yanni Black RN) Leg edema Psoriatic arthritis Colon cancer screening Abnormal mammogram Rosacea History of Papanicolaou smear of cervix (~11/15/21) History of mammogram (~06/25/24) Encounter for methotrexate monitoring Psoriasis Vitamin D deficiency History of squamous cell carcinoma of skin Vitamin deficiency FUNMI positive Essential (primary) hypertension Anxiety disorder, unspecified Family History Family History Son No problems noted. Son No problems noted. Father Substance use disorder Surgical History Surgical History History of colonoscopy (~11/13/19) History of total right hip replacement Social History Social History Housing: House Alcohol intake: current Alcohol intake frequency: a few times a week Patient Tobacco Use Status: Never used Tobacco e-Cigarette/Vaping Use: Never Used Second Hand Smoke Exposure: No Use of substances other than those prescribed or required for medical reasons: No Are you DNR?: No Advance Directives: No Advance Directives Information Provided: Yes service: No Current occupational status: employed Current occupational exposures/hazards: No Cognitive needs: No Hearing needs: No Vision needs: Yes (contact/Reading glasses) Meds Allergies Allergy/AdvReac Type Severity Reaction Status Date / Time No Known Allergies Allergy Verified 01/09/25 08:50 Home Medications ?Medication ?Instructions ?Recorded ?Confirmed ?Last Taken ?Type doxycycline hyclate 20 mg tablet 20 mg PO BID PRN Rosacea 05/13/24 01/07/25 Unknown History fluorouracil 5 % topical cream 1 appl topical BID 04/24/25 10/01/25 Unknown History Exam Height,Weight and Vital Signs: Height 5 ft 6 in Weight 68.946 kg Assessment and Plan Assessment Anesthesia Assessment: Chart Reviewed Documented by User: Tierra Campoverde MD 01/09/25 09:28 [facility] Past Medical History Medical History (Updated 01/09/25 @ 09:07 by Yanni Black RN) Leg edema Psoriatic arthritis Colon cancer screening Abnormal mammogram Rosacea History of Papanicolaou smear of cervix (~11/15/21) History of mammogram (~06/25/24) Encounter for methotrexate monitoring Psoriasis Vitamin D deficiency History of squamous cell carcinoma of skin Vitamin deficiency FUNMI positive Essential (primary) hypertension Anxiety disorder, unspecified Family History Family History Son No problems noted. Son No problems noted. Father Substance use disorder Family history of problems with anesthesia: No Surgical History Surgical History History of colonoscopy (~11/13/19) History of total right hip replacement History of Problems with Anesthesia: No Social History Social History Housing: House Alcohol intake: current Alcohol intake frequency: a few times a week Patient Tobacco Use Status: Never used Tobacco e-Cigarette/Vaping Use: Never Used Second Hand Smoke Exposure: No Use of substances other than those prescribed or required for medical reasons: No Are you DNR?: No Advance Directives: No Advance Directives Information Provided: Yes service: No Current occupational status: employed Current occupational exposures/hazards: No Cognitive needs: No Hearing needs: No Vision needs: Yes (contact/Reading glasses) Meds Allergies Allergy/AdvReac Type Severity Reaction Status Date / Time No Known Allergies Allergy Verified 01/09/25 08:50 Home Medications ?Medication ?Instructions ?Recorded ?Confirmed ?Last Taken ?Type doxycycline hyclate 20 mg tablet 20 mg PO BID PRN Rosacea 05/13/24 01/07/25 Unknown History fluorouracil 5 % topical cream 1 appl topical BID 07/31/24 01/07/25 Unknown History Exam Airway Mallampati Class: II TM Dist: >3cm Neck ROM: Full Heart: rrr Lungs: cta Assessment and Plan Assessment Anesthesia Assessment: Anesthesia Plan Discussed Final Anesthetic Review Family History of Problems with Anesthesia: No History of Problems with Anesthesia: No NPO: Yes ASA Class: II Final Preanesthetic Review: No Changes in Pt Med Stat, Meds/Allgs Chart Reviewed and Consent Obtained/Reviewed Patient Risk: Low Procedure Risk: Low Anesthetic Plan Anesthetic Plan: MAC: Disposition: Standard PACU
--- NOTE | 2025-01-09 07:25 | MHC.SHP ---
Pre-Procedural Eval Section A - 24 Hr Update-Section A only Date of Service: 01/09/25 The patient is an INPATIENT: No The patient has been examined within 24 hours of the surgical procedure. The History & Physical has been completed within 30 days and I have reviewed it.: No Section B - Complete if H&P > 30 days Chief Complaint: Surveillance for colon polyps Relevant Family History (Specify if Yes): No Relevant Social History: None Present Medications: see Short Stay Collaborative assessment Medical History: Significant History (Psoriasis Vitamin D deficiency History of squamous cell carcinoma of skin Vitamin deficiency FUNMI positive Essential (primary) hypertension Anxiety disorder, unspecified) History of Previous Operations: Relevant previous surgery/procedure and date(s) (History of colonoscopy (~11/13/19) History of total right hip replacement) Allergies: Allergies Allergy/AdvReac Type Severity Reaction Status Date / Time No Known Allergies Allergy Verified 10/22/24 07:58 Review of Systems Sugical H&P ROS: Negative: Constitution, Cardiovascular, Respiratory and Gastrointestinal Exam Surgical H&P Exam: Normal: Heart, Normal: Lungs, Normal: Extremities and Normal: Abdomen Plan Diagnosis/Plan: Unchanged I have reviewed the history and physical and performed a pertinent physical examination on my patient. No changes have occurred unless specified. Time Spent With Patient Time: Total time managing care of this patient today ____ minutes.
[2025-01-09 08:50] VITALS: BMI 24.5
[2025-01-09 08:53] VITALS: BP 112/68; PULSE 89; RESP 15; TEMP 36.8; O2SAT 98
[2025-01-09] MEDS: Lactated Ringers 1,000 ML 100 ML IVCONT (09:06)
--- NOTE | 2025-01-09 11:08 | HO.OPN-COLON ---
Colonoscopy Operative Note Operative Note Date of Service: 01/09/25 Narrative: COLONOSCOPY TILL CECUM WITH BIOPSIES AND SNARE POLYPECTOMY Pre-op diagnosis: Surveillance for colon polyps. Post-op diagnosis:? Colon polyps, melanosis coli, hemorrhoids Endoscopist:? Param Alvarez MD Anesthesia:?MAC Consent: Indications for the procedure and potential complications of bleeding, perforation, reaction to medications and missed diagnosis were discussed with the patient and informed consent was obtained. Instrument: Olympus PCF H 190 L variable stiffness pediatric colonoscope Monitoring: Vital signs and clinical assessment, intermittent blood pressure monitoring, continuous EKG monitoring, Pulse oximetry and Carbon Dioxide monitoring were done throughout the procedure. Please see anesthesia flowsheet. Colon withdrawl time was 28 minutes. Procedure: The patient was placed in the left lateral decubitis position and pre-procedure medications were administered. After a digital rectal examination of the ano-rectum, the video colonoscope was inserted into the rectum and advanced through the colon to the cecum. The colonoscope was slowly withdrawn in a retrograde panoramic fashion and the colon mucosa was carefully examined including a retroflexed view of the rectum. Findings and interventions are described below. Procedure Difficulty: Colon was long and tortuous and there was some loop formation. Findings: Terminal Ileum: Not evaluated Cecum: Mild melanosis coli was present throughout the entire colon Ascending Colon: A 5-6 mm sessile polyp in the distal ascending colon- removed with a cold biopsy. Mild melanosis coli was present throughout the entire colon Transverse Colon: A 10 mm sessile polyp - removed with a cold snare. Remaining polyp was removed with a cold biopsy. Mild melanosis coli was present throughout the entire colon Descending Colon: Mild melanosis coli was present throughout the entire colonNormal Sigmoid Colon: Mild melanosis coli was present throughout the entire colon Rectum: Normal Ano-rectum: Small internal hemorrhoids and hypertrophied anal papillae Colon preparation: Excellent, after 2 irrigation. Platinum Bowel Preparation Scale Right colon; 3 Transverse colon: 3 Left colon; 3 (0 = Unprepared colon segment with mucosa not seen due to solid stool that cannot be cleared. 1 = Portion of mucosa of the colon segment seen, but other areas of the colon segment not well seen due to staining, residual stool and/or opaque liquid. 2 = Minor amount of residual staining, small fragments of stool and/or opaque liquid, but mucosa of colon segment seen well. 3 = Entire mucosa of colon segment seen well with no residual staining, small fragments of stool or opaque liquid) Impression and Post Procedure Diagnosis: Colonoscopy Findings: Two polyps were removed Mild melanosis coli was present throughout the entire colon small hemorrhoids on retroflexed exam. Plan: Pt has a FU appointment on 01/20/25 with Mari Sarmiento NP, Repeat Colonoscopy in 3-5 years if polyps are adenomatous and 10 year if polyps are hyperplastic. Above findings were reviewed with the patient and relevant handouts were given and the discharge area. BIOPSIES SHOWED: A. Colon, transverse, polypectomy: Sessile serrated lesion/polyp; negative for cytologic dysplasia. B. Colon, descending, polypectomy: Fragments of tubular adenoma; negative for high-grade dysplasia or carcinoma Letter sent to the patient with biopsy results. Patient was placed on the colonoscopy recall list for repeat colonoscopy in 3 years.
[2025-01-09 11:10] VITALS: BP 99/70; PULSE 77; RESP 16; TEMP 36.1; O2SAT 100
[2025-01-09 11:29] VITALS: BP 112/70; PULSE 69; RESP 18; TEMP 36.1; O2SAT 100
== END 2025-01-09 11:49 | disposition home or self-care (01) ==
PROVIDERS: PCP Internal Medicine; Visit Provider Internal Medicine Gastroenterology
PROC: 0DJD8ZZ Inspection of Lower Intestinal Tract, Via Natural or Artificial Opening Endoscopic (ICD-10-PCS; CPT 45378; principal; 2025-01-09 10:10)
DX: Z12.11 Encounter for screening for malignant neoplasm of colon (principal); D12.3 Benign neoplasm of transverse colon; D12.4 Benign neoplasm of descending colon; K64.8 Other hemorrhoids; K62.89 Other specified diseases of anus and rectum; K63.89 Other specified diseases of intestine; K56.2 Volvulus; Q43.8 Other specified congenital malformations of intestine; Z86.0100 Personal history of colon polyps, unspecified; I10 Essential (primary) hypertension; Z85.828 Personal history of other malignant neoplasm of skin
CPT/HCPCS: 45385; 45380; 88305; J2003; J2704

== ENCOUNTER → 2025-01-09 08:06 | Outpatient (BNV) | payer BC, SELFPAY | PROVIDERS: PCP Internal Medicine; Visit Provider Internal Medicine Gastroenterology | DX: Z12.11 Encounter for screening for malignant neoplasm of colon (principal); K63.89 Other specified diseases of intestine; D12.2 Benign neoplasm of ascending colon; D12.3 Benign neoplasm of transverse colon; K64.8 Other hemorrhoids | CPT/HCPCS: 45380; 45385 ==

== ENCOUNTER 2025-01-20 15:33 | Outpatient (AMB) | payer BC, SELFPAY ==
--- NOTE | 2025-01-20 15:35 | A.OFFVIS_ITS ---
Vital Signs 01/20/25 15:36 Height 5 ft 6 in Weight 152 lb BMI 24.5 BP 112/63 Blood Pressure Location Lt brachial Position Sitting Pulse 98 Pulse Oximetry (%) 98 Oxygen Delivery Method Room Air Intake Visit Reasons: s/p double Antonio Intake Note: Patient follow up for Colonoscopy result Patient cc: constipation on and off after the prep, denies any other GI issues. Hot Metal Charger Required: No Accompanied by: Self / Same As Patient Allergies No Known Allergies Allergy (Verified 01/20/25 15:35) HPI HPI s/p double Antonio: Details: Patient is a 59-year-old female with PMH of OA, anxiety, psoriasis and hypertension. F/u post-colonoscopy (01-09-25): review findings, address pt experience during prep, and review ongoing stool pattern changes. Since colonoscopy on 01-09-25, pt experienced syncopal event during early a.m. hours after prep, resulting in head laceration and dental trauma. Pt attributes incident to dehydration compounded by limited intake post-midnight and concurrent flu vaccination. No new hospitalizations or ER/UC visits reported. Pt notes altered BMs post-colonoscopy?reduced frequency (QOD), formed without discomfort, previously experienced marked decrease in BM frequency after use of loperamide for a GI bug months prior. No abdominal pain, N/V, or fever currently. Reports compliance with clear liquids during prep, though may have misunderstood NPO timing, leading to early cessation of fluid intake. [facility] Medical History (Updated 01/20/25 @ 16:47 by Mari Sarmiento CNP) Syncope Change in stool habits Colon polyp Leg edema Psoriatic arthritis Colon cancer screening Abnormal mammogram Rosacea History of Papanicolaou smear of cervix (~11/15/21) History of mammogram (~06/25/24) Encounter for methotrexate monitoring Psoriasis Vitamin D deficiency History of squamous cell carcinoma of skin Vitamin deficiency FUNMI positive Essential (primary) hypertension Anxiety disorder, unspecified Surgical History History of colonoscopy (~01/09/25) History of total right hip replacement Family History Son No problems noted. Son No problems noted. Father Substance use disorder Social History Housing: House Alcohol intake: current Alcohol intake frequency: a few times a week Patient Tobacco Use Status: Never used Tobacco e-Cigarette/Vaping Use: Never Used Second Hand Smoke Exposure: No service: No Current occupational status: employed Current occupational exposures/hazards: No Cognitive needs: No Hearing needs: No Vision needs: Yes (contact/Reading glasses) Review of Systems Const Reports as per HPI ENT Reports as per HPI Card Reports as per HPI Resp Reports as per HPI GI Reports as per HPI Reports as per HPI Physical Exam Vital Signs: Last Vital Signs Pulse 98 01/20/25 15:36 BP 112/63 01/20/25 15:36 Pulse Ox 98 01/20/25 15:36 Oxygen Delivery Method Room Air 01/20/25 15:36 BMI result Body Mass Index 24.5 Const General: healthy appearing, no acute distress and well developed Nutritional Appearance: average body habitus Orientation/consciousness: patient oriented x3 HEENT Head: Yes normal to inspection, Yes normocephalic and Yes atraumatic Face and sinus: Yes normal facial exam Eyes General: appearance normal, both eyes and all related structures Neck Neck: Yes normal visual inspection Resp Effort & Inspection: normal respiratory effort, able to speak in complete sentences, no tracheal deviation and symmetric chest movement Cardio Jugular venous distension: no JVD Neuro General: patient oriented x3 Gait exam (Neuro): Normal gait present Psych Appearance: grossly normal Mental Status: mental status grossly normal Speech and movement: Normal speech and movement present Affect: normal affect Attitude: cooperative Thought process: Normal thought process present Thought content: Normal thought content present Insight: Good insight present (Psych) Judgement: Good judgement present (Psych) Assessment & Plan Assessment & Plan (1) Colon polyp: Comment: 01/09/25 Colonoscopy complete with excellent prep, after 2 irrigation- 5-6 mm TA (Ascending confirmed with endoscopist), 10 mm SSP (Transverse), small internal hemorrhoids. recommendations for repeat in 3 years ( 2027). 11/13/2019 Colonoscopy complete with excellent prep-1+ internal hemorrhoids, fragments of sessile serrated polyp to proximal transverse colon. Recommendations for repeat in 5 years. Code(s): K63.5 - Polyp of colon Category: Medical Qualifiers: Colon polyp type: adenomatous Colon location: ascending Qualified Code(s): D12.2 - Benign neoplasm of ascending colon Plan: Tubular adenoma and sessile serrated polyp fully resected; pt asymptomatic. Polyp histology and size warrant shorter 3-yr surveillance vs prior 5-yr; discussed rationale with pt Additional Testing: None indicated until surveillance colonoscopy (due ) Medications: None specific for polyps Lifestyle Recommendations: Encourage high-fiber, well-balanced diet; avoid constipation; abstain from tobacco/alcohol use; pt advised to track colonoscopy interval (reminder documented in system) Referrals / Coordination: None at this time Follow-Up Plan: Colonoscopy in 3 years; earlier if new GI sx (hematochezia, melena, unexplained anemia, wgt loss, etc.) (2) Change in stool habits: Code(s): R19.4 - Change in bowel habit Category: Medical Plan: Current BM QOD, mildly constipated but nonpainful; no red flag sx Common post- colonoscopy; prior similar reaction to antimotility agent; likely transient Additional Testing: None at this time; monitor for resolution Medications: Consider OTC probiotic or dietary sources (yogurt, sauerkraut, etc.); increase fiber intake; prn stool softener if BMs remain infrequent/met criteria for constipation Lifestyle Recommendations: Gradually restore fiber-rich foods; consider regular use of probiotic-rich foods or supplements; hydrate adequately Referrals / Coordination: None needed Follow-Up Plan: Observe for normalization next 2-4 wks; prn f/u if constipation persists or new GI sx develop (3) Syncope: Code(s): R55 - Syncope and collapse Category: Medical Qualifiers: Syncope type: unspecified Qualified Code(s): R55 - Syncope and collapse Plan: Acute event resolved; facial wound and dental injury reportedly healing. Event likely related to dehydration, inappropriate NPO timing, recent flu vax; no recurrent sx Additional Testing: None indicated unless recurrent syncope/dizziness Medications: None; monitor for residual effects from trauma Lifestyle Recommendations: Next bowel prep?all instructions to be provided in writing and reviewed with pt in real time; clarify NPO timing (only 4 hrs pre- procedure); advise against scheduling vax proximate to future procedures; stress importance of adequate oral hydration (including electrolyte sources?broth, jello, popsicles) Referrals / Coordination: Dental f/u PRN for chipped tooth; monitor healing of facial injury Follow-Up Plan: Prompt reporting if new neuro, dental, or wound problems; education provided for future prep safety Plan Follow-up as needed Time: I spent a total of 20 minutes on the date of encounter which includes: Preparing to see the patient (reviewed previous documentation, test results and medical history) Performing a medically appropriate exam and/or evaluation Ordering medications, tests, and procedures Documenting clinical information in the health record Coding Level of Care Code Established Pt Est Pt Level 3 (99156) Patient Type Established Diagnoses Adenomatous polyp of ascending colon D12.2 Colon polyp type: adenomatous Colon location: ascending Change in stool habits R19.4 Syncope, unspecified syncope type R55 Syncope type: unspecified
[2025-01-20 15:36] VITALS: BP 112/63; PULSE 98; O2SAT 98; BMI 24.5
--- OUTSIDE RECORDS SUMMARY | 2025-01-20 18:17 | XMS_ITS | Clinical Summary ---
Author Organization [facility] Address [address] [place] [id number] Phone Care Team Providers Care Bowling Alley Manager Name Role Phone Pcp, Unknown Primary Care [...] FOBT 12/24/2012 SIGMOIDOSCOPY 12/24/2012 VIRTUAL COLONOSCOPY 12/24/2012 RSV VACCINE (1 - Risk 50-74 years 1-dose series) 12/24/2017 INFLUENZA VACCINE (#1) 2024 SMOKING STATUS SCREENING [...] topic Medical Devices Not on file Insurance [facility] Care Teams Bowling Alley Manager Relationship Specialty Start Date End Date Pcp, Unknown PCP - General 10/05/21 Additional Source Comments The information contained in this document represents components of the legal health record. It is not the complete legal health record.[facility]
== END 2025-01-20 16:05 | disposition home or self-care (01) ==
LOC: HO.HGI 15:34
PROVIDERS: PCP Internal Medicine; Visit Provider Nurse Practitioner Family
DX: D12.2 Benign neoplasm of ascending colon (principal); R19.4 Change in bowel habit; R55 Syncope and collapse
CPT/HCPCS: 99213

== ENCOUNTER 2025-02-05 08:50 | Outpatient (AMB) | payer BC, SELFPAY ==
--- NOTE | 2025-02-05 09:06 | MHC.PC.OV ---
Vital Signs 02/05/25 09:07 Height 5 ft 6 in Weight 150 lb 6 oz BMI 24.3 BP 100/62 Blood Pressure Location Lt brachial Position Sitting Pulse 78 Pulse Source Pulse Oximeter Temp 97.3 F Temp Source Temporal Artery Scan Pulse Oximetry (%) 98 Oxygen Delivery Method Room Air Intake Visit Reasons: 6mth f/u Intake Note: Patient is here to follow up on OA, HTN. 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 Required: No Food Service Tray Attendant: Not Required per policy Accompanied by: Self / Same As Patient Allergies No Known Allergies Allergy (Verified 02/05/25 09:07) Tobacco use date assessed: 02/05/25 Dental Screening Dental Screen Date: 07/31/24 [facility] Medical History (Updated 01/20/25 @ 16:47 by Mari Sarmiento CNP) Syncope Change in stool habits Colon polyp Leg edema Psoriatic arthritis Colon cancer screening Abnormal mammogram Rosacea History of Papanicolaou smear of cervix (~11/15/21) History of mammogram (~06/25/24) Encounter for methotrexate monitoring Psoriasis Vitamin D deficiency History of squamous cell carcinoma of skin Vitamin deficiency FUNMI positive Essential (primary) hypertension Anxiety disorder, unspecified Surgical History History of colonoscopy (~01/09/25) History of total right hip replacement Family History Son No problems noted. Son No problems noted. Father Substance use disorder Social History Housing: House Alcohol intake: current Alcohol intake frequency: a few times a week Patient Tobacco Use Status: Never used Tobacco e-Cigarette/Vaping Use: Never Used Second Hand Smoke Exposure: No service: No Current occupational status: employed Current occupational exposures/hazards: No Cognitive needs: No Hearing needs: No Vision needs: Yes (contact/Reading glasses) Questionnaire PHQ-9 Over the last 2 weeks, how often have you been bothered by any of the following problems? 1. Little interest or pleasure in doing things: not at all 2. Feeling down, depressed, or hopeless: not at all 3. Trouble falling or staying asleep, or sleeping too much: not at all 4. Feeling tired or having little energy: several days 5. Poor appetite or overeating: not at all 6. Feeling bad about yourself - or that you are a failure or have let yourself or your family down: not at all 7. Trouble concentrating on things, such as reading the newspaper or watching television: not at all 8. Moving or speaking so slowly that other people could have noticed. Or the opposite - being so fidgety or restless that you have been moving around a lot more than usual: not at all 9. Thoughts that you would be better off or of hurting yourself in some way: not at all Total score: 1 Depression Screening Interpretation: Positive Depression Screening Done: Yes Source: Developed by Drs. Osmany Sung, Carie Araiza, Kan Quijano and colleagues, with an educational jessica from [employer]. Thrive Questionnaire Date Thrive assessed: 01/30/25 I am a: Patient What is your living situation today?: I have a steady place to live Within the past 12 months, did the food you bought not last and you didn't have the money to get more?: Never true Within the past 12 months, did you worry whether your food would run out before you got money to buy more?: Never true Do you have trouble paying for medicines?: No Do you have trouble getting transportation to medical appointments?: No Do you have trouble paying your heating and electricity bill?: No Do you have trouble taking care of your child, family member or friend?: No Do you have trouble with day-to-day activities such as bathing, preparing meals, shopping, managing finances, etc.?: No Are you currently unemployed and looking for a job?: No Are you interested in more education?: No Please select the resources that you would like help with: None Currently or been in a relationship where the following occur: No concerns reported THRIVE Score: 0 AUDIT C Alcohol Use Questionnaire (AUDIT-C) 1. How often do you have a drink containing alcohol?: 2-3 times a week Total Score: 3 CHIP-7 AMB Questionnaire CHIP-7 Date CHIP - 7 assessed: 02/05/25 Feeling nervous, anxious, or on edge: 2 = More than half the days Not being able to stop or control worryin = More than half the days Worrying too much about different things: 2 = More than half the days Trouble relaxin = More than half the days Being so restless that it is hard to sit still: 0 = Not at all Becoming easily annoyed or irritable: 1 = Several days Feeling afraid as if something awful might happen: 1 = Several days Total CHIP-7 score (0-4 normal; 5-9 mild; 10-14 moderate; 15-21 severe): 10 Source: Developed by Drs. Osmany Sung, Carie Araiza, Kan Quijano and colleagues, with an educational jessica from [employer]. Physical exam (Primary Care) Vital Signs: Last Vital Signs Temp 97.3 F 02/05/25 09:07 Pulse 78 02/05/25 09:07 BP 100/62 02/05/25 09:07 Pulse Ox 98 02/05/25 09:07 Oxygen Delivery Method Room Air 02/05/25 09:07 BMI result Body Mass Index 24.3 Tobacco/Smoking Status: Tobacco use Status Tobacco use date assessed 02/05/25 02/05/25 09:13 Patient Tobacco Use Status Never used Tobacco 02/05/25 09:13 e-Cigarette/Vaping Use Never Used 02/05/25 09:13 PHQ-9: PHQ-9 Score PHQ-9: Total score 1 02/05/25 09:13 Depression Screening Interpretation: Positive Thrive Assessment: Date of Thrive Assessment Date Thrive assessed 01/30/25 02/05/25 09:13 Currently or been in a relationship where the following occur: No concerns reported Coding Level of Care Code Est Pt Level 4 (05137) Complex EM visit Add On G2211 Diagnoses Generalized anxiety disorder F41.1 Anxiety disorder type: generalized anxiety disorder Assessment & Plan Assessment & Plan (1) Anxiety disorder, unspecified: Code(s): F41.9 - Anxiety disorder, unspecified Category: Medical Qualifiers: Anxiety disorder type: generalized anxiety disorder Qualified Code(s): F41.1 - Generalized anxiety disorder Plan: History of Present Illness - The patient is a 59-year-old female presenting with psoriatic arthritis and low blood pressure. - Psoriatic arthritis has been flaring more frequently, and the patient is scheduled to see a hand glass cutter in April. - Currently on methotrexate and folic acid for psoriatic arthritis, with no new medications added. - The patient experienced low blood pressure during a colonoscopy prep, leading to dehydration and fainting, resulting in a head injury and chipped tooth. - Colonoscopy revealed polyps, which were removed. - Anxiety has worsened since work started, with medication taken as needed. - Rosacea is managed with doxycycline as needed. - Preventative care includes a mammogram scheduled for next week due to a previous finding, and a recent flu shot was administered. Social History - Employment: Work has been described as a little crazy, contributing to increased anxiety. Review of Systems - Musculoskeletal: Reports increased frequency of psoriatic arthritis flares. - Cardiovascular: Reports low blood pressure during colonoscopy prep. - Neurological: Reports fainting episode resulting in head injury and chipped tooth. - Dermatological: Reports rosacea managed with doxycycline as needed. - Psychological: Reports increased anxiety since work started, managed with medication as needed. Physical Exam General: Cooperative and healthy appearing Nutritional Appearance: Well nourished Orientation/consciousness: Patient oriented x3 Limitations: No limitations Head: Normal to inspection General: Appearance normal, both eyes and all related structures Neck: Normal visual inspection Chest: Normal palpation of entire chest wall Respiratory: N ormal respiratory effort Neurology: Patient oriented x3, but experienced fainting episode with head injury due to dehydration and low blood pressure. Results - Colonoscopy: Polyps found and removed. - Mammogram: Follow-up scheduled due to previous finding. Plan - Continue current medication regimen for psoriatic arthritis and follow up with hand glass cutter in April. - Hold triamterene for now and monitor for swelling; patient to report any changes. - Follow up on mammogram results after the scheduled appointment next week. - Monitor anxiety levels and continue medication as needed. Discussion Notes I discussed with the patient the importance of monitoring her psoriatic arthritis and continuing her current medication regimen. We agreed to hold the triamterene and monitor for any swelling, with instructions to report any changes. I advised her to follow up on her mammogram results after her appointment next week. We also discussed managing her anxiety with medication as needed and the importance of monitoring her symptoms. Patient Instructions - Continue taking methotrexate and folic acid as prescribed. - Stop taking triamterene and monitor for any swelling; contact the clinic if swelling occurs. - Attend the scheduled mammogram appointment next week and follow up on results. - Take anxiety medication as needed and monitor symptoms.
[2025-02-05 09:07] VITALS: BP 100/62; PULSE 78; TEMP 36.3; O2SAT 98; BMI 24.3
== END 2025-02-05 09:38 | disposition home or self-care (01) ==
LOC: HO.HMCH 08:51
PROVIDERS: PCP Internal Medicine; Visit Provider Internal Medicine
DX: F41.1 Generalized anxiety disorder (principal)

== ENCOUNTER 2025-02-13 08:16 | Outpatient (REF) | payer BC, SELFPAY ==
--- NOTE | ~2025-02-13 | MM_ITS ---
EXAMINATION(S): 1. MM DIAGNOSTIC DIGITAL BREAST TOMOSYNTHESIS, RIGHT 2. Targeted ultrasound of the left breast CLINICAL INFORMATION: This is a 6-month follow-up for the following findings: Right breast: 6 month follow-up mammogram for asymmetry in the retroareolar region middle depth on the MLO view Left breast: Minimally complicated cyst or solid mass of the sonographic correlate for the mammographic finding located at 2 o'clock position 4 cm from the nipple. COMPARISON: Comparison made to multiple prior, most recent August 07, 2024, and most remote May 18, 2018. TECHNIQUE: Digital breast tomosynthesis is performed in full-field MLO along with computer-aided detection (CAD). Synthesized 2D images are generated from the tomosynthesis. FINDINGS: BREAST COMPOSITION: There are scattered areas of fibroglandular density. RIGHT BREAST: Previously described asymmetry in the retroareolar plane on the MLO view without sonographic correlate is unchanged from August 2024. LEFT BREAST: Targeted ultrasound of the left breast was performed at the location of the previously described sonographic finding. The survey shows a 0.7 x 0.5 x 0.7 cm hypoechoic lesion, which may represent a minimally complicated cyst or solid mass at 2 o'clock position at 4 cm from the nipple. Prior measurements were 1.0 x 0.5 x 0.8 cm. No internal vascularity demonstrated with color Doppler evaluation. MM/MM tomosynthesis diagnostic RT IMPRESSION: RIGHT BREAST: Asymmetry in the retroareolar plane on the MLO view, without sonographic correlate in prior evaluation. Probably benign. A 6-month follow-up mammogram is recommended. LEFT BREAST: Stable complicated cyst or solid mass at 2 o'clock position at 4 cm from the nipple, correlating with the mammographic finding. Probably benign. A 6-month follow-up mammogram and ultrasound is recommended. ASSESSMENT: BI-RADS: Category 3: Probably benign RECOMMENDATION: 6 Month F/U Results were provided to the patient at time of visit by the technologist. This patient's information was entered into a reminder system with a target due date for their next mammogram. Electronically signed by: Vinayak Flores MD 02/13/2025 09:12 AM [facility]
--- OUTSIDE RECORDS SUMMARY | 2025-02-13 08:33 | XMS_ITS | Clinical Summary ---
Author Organization [facility] Address [address] [place] [id number] Phone Care Team Providers Care Residential Carpenter Name Role Phone Pcp, Unknown Primary Care [...] Devices Not on file Insurance [facility] Care Teams Residential Carpenter Relationship Specialty Start Date End Date Pcp, Unknown PCP - General 10/05/21 Additional Source Comments The information contained in this document represents components of the legal health record. It is not the complete legal health record.[facility]
== END 2025-02-13 08:17 | disposition home or self-care (01) ==
LOC: HO.MAMMO 08:16
PROVIDERS: PCP Internal Medicine; Visit Provider Internal Medicine
DX: R92.2 Inconclusive mammogram (principal)
CPT/HCPCS: 76642; 77061; 77065

== ENCOUNTER → 2025-02-13 09:00 | Outpatient (BNV) | payer BC, SELFPAY | PROVIDERS: PCP Internal Medicine; Visit Provider Radiology Body Imaging | DX: R92.8 Other abnormal and inconclusive findings on diagnostic imaging of breast (principal) | CPT/HCPCS: 76642; 77061; 77065 ==

== ENCOUNTER 2025-04-07 10:54 | Outpatient (REF) | payer BC, SELFPAY ==
[2025-04-07 11:09] LABS: MANUAL DIFF FLAG NO
[2025-04-07 11:42] LABS: Hematocrit 40.2 % (37.0-47.0); Hemoglobin 13.7 g/dl (12.0-16.0); Imm Gran Abs Auto 0.02 X10*3/uL (0.00-0.03); Imm Gran Pct Auto 0.3 % (0.0-0.4); Lymphocytes Absolute Auto 1.2 X10*3/uL (1.2-4.9); Mean Corpuscular HGB Conc 34.1 g/dl (31.0-35.0); Mean Corpuscular Hemoglobin 31.4 pg (27.0-33.0); Mean Corpuscular Volume 92.2 fL (80.0-98.0); NRBC Abs Auto 0.000 X10*3/uL (0.0-0.012); NRBC Pct Auto 0.0 /100WBC (0.0-0.2); Platelet Count 311 X10*3/uL (160-400); Red Blood Count 4.36 X10*6/uL (4.20-5.50); White Blood Count 6.1 X10*3/uL (4.8-10.8)
[2025-04-07 12:50] LABS: Alanine Aminotransferase 12 U/L (0-31); Albumin Level 4.6 g/dL (3.5-5.0); Alkaline Phosphatase 78 U/L (39-117); Anion Gap 12 (12-20); Aspartate Amino Transferase 23 U/L (5-31); Blood Urea Nitrogen 10 mg/dL (9-16); Calcium 9.4 mg/dL (8.4-10.2); Carbon Dioxide 28 mmol/L (22-29); Chloride 100 mmol/L (96-108); Estimated Glomerular Filt Rate > 60; Potassium 4.0 mmol/L (3.3-5.1); Sodium 136 mmol/L (135-145); Total Protein 7.4 g/dL (6.5-8.0)
--- OUTSIDE RECORDS SUMMARY | 2025-04-07 14:48 | XMS_ITS | Clinical Summary ---
Author Organization [facility] Address [address] [place] [phone] Phone Care Team Providers Care Rec Therapist Name Role Phone Pcp, Unknown Primary Care [...] topic Medical Devices Not on file Insurance [facility] Care Teams Rec Therapist Relationship Specialty Start Date End Date Pcp, Unknown PCP - General 10/05/21 Additional Source Comments The information contained in this document represents components of the legal health record. It is not the complete legal health record.[facility]
== END 2025-04-07 10:55 ==
LOC: HO.LAB 10:54
PROVIDERS: PCP Internal Medicine; Visit Provider Student in an Organized Health Care Education/Training Program
DX: L40.50 Arthropathic psoriasis, unspecified (principal)
CPT/HCPCS: 36415; 80053; 85025; 85652; 86140